=== PATIENT | female | born 1995 | race Caucasian/White ===

== ENCOUNTER 2016-08-29 00:02 | Emergency (ER) | payer OTHER ==
[2016-08-29 01:24] VITALS: BP 119/67; PULSE 82; TEMP 98.9; BMI 28.3
[2016-08-29] MEDS ORDERED: IBUPROFEN 400 MG TABLET (FP) PO ONE ×2 (01:58→03:32)
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
[2016-08-29 03:33] LABS: URINE APPEARANCE CLEAR; URINE BILIRUBIN NEGATIVE (NEGATIVE); URINE BLOOD NEGATIVE (NEGATIVE); URINE COLOR YELLOW; URINE GLUCOSE (UA) NEGATIVE (NEGATIVE); URINE KETONE TRACE (NEGATIVE); URINE LEUK ESTERASE NEGATIVE (NEGATIVE); URINE NITRITE NEGATIVE (NEGATIVE); URINE PROTEIN NEGATIVE (NEGATIVE); URINE UROBILINOGEN NEGATIVE E.U./dl (0.2-1.0)
[2016-08-29] MEDS ORDERED: AMOX TR/POT CLAV 875MG/125MG TABLETS (FP) PO ONE (03:33)
[2016-08-29] MEDS ORDERED: AMOX TR/POT CLAV 875MG/125MG TABLETS (FP) ONE (03:38)
[2016-08-29] MEDS ORDERED: BACITRACIN 0.9 GM PACKET ONE (03:41)
== END 2016-08-29 04:09 | disposition short-term general hospital (02) ==
LOC: JER 00:02
DX: S61.051A Open bite of right thumb without damage to nail, initial encounter (principal); S63.641A Sprain of metacarpophalangeal joint of right thumb, initial encounter; Y04.1XXA Assault by human bite, initial encounter; Y93.89 Activity, other specified; Y92.9 Unspecified place or not applicable
CPT/HCPCS: 73130-TC-RT; 81003; 84703; 99283-25

== ENCOUNTER 2017-01-25 20:26 | Inpatient (IN) | payer OTHER ==
--- NOTE | 2017-01-25 21:21 | PDOC ---
History of Present Illness - General History Source: Patient Exam Limitations: No Limitations - History of Present Illness Initial Comments: 01/25/17 22:18 The patient is a 21 year old female , with significant past medical history of asthma, who presents today complaining of 2 weeks of RUQ pain, nausea, and vomiting. The patient notes that she visited her PCP, 5 days ago, secondary to vomiting and was told she was after a urine test. She notes that she was vomiting some bright red blood and was told that she has a probable esophageal tear from vomiting for 2 weeks. She notes that her LMP was 12/14/16. Her last meal today was wolof food for dinner, but she vomited afterwards. She notes that the RUQ pain has subsided since arriving to the emergency room. The patient does not have an OBGYN yet and is unsure how many weeks she is. Denies fever, chills, diarrhea. Denies flank pain. Denies chest pain, SOB. Allergies: none reported PCP: Dr. Messi Lozada <Lucia Adkins - Last Filed: 01/26/17 02:54> <Mona Chen - Last Filed: 01/26/17 05:59> - General Chief Complaint: Nausea/Vomiting Stated Complaint: PAIN ACUTE () Time Seen by Provider: 01/25/17 21:04 Past History <Lucia Adkins - Last Filed: 01/26/17 02:54> - Past Medical History Asthma: Yes Other medical history: denies - Immunization History Immunization Up to Date: Yes - Psycho/Social/Smoking Cessation Hx Anxiety: No Suicidal Ideation: No Smoking History: Never smoked Have you smoked in the past 12 months: No Hx Alcohol Use: No Drug/Substance Use Hx: No Substance Use Type: None <Mona Chen - Last Filed: 01/26/17 05:59> - Past Medical History Allergies/Adverse Reactions: Allergies Allergy/AdvReac Type Severity Reaction Status Date / Time No Known Allergies Allergy Verified 01/25/17 20:31 Home Medications: Ambulatory Orders NK [No Known Home Medication] 01/26/17 Review of Systems - Review of Systems Able to Perform ROS?: Yes Comments:: 01/25/17 22:20 GENERAL/CONSTITUTIONAL: No fever or chills. No weakness. HEAD, EYES, EARS, NOSE AND THROAT: No change in vision. No ear pain or discharge. No sore throat. CARDIOVASCULAR: No chest pain or shortness of breath. RESPIRATORY: No cough, wheezing, or hemoptysis. GASTROINTESTINAL: +nausea, +vomiting, +RUQ pain. No diarrhea or constipation. GENITOURINARY: No dysuria, frequency, or change in urination. MUSCULOSKELETAL: No joint or muscle swelling or pain. No neck or back pain. SKIN: No rash NEUROLOGIC: No headache, vertigo, loss of consciousness, or change in strength/ sensation. ENDOCRINE: No increased thirst. No abnormal weight change. HEMATOLOGIC/LYMPHATIC: No anemia, easy bleeding, or history of blood clots. ALLERGIC/IMMUNOLOGIC: No hives or skin allergy. <Lucia Adkins - Last Filed: 01/26/17 02:54> *Physical Exam - Vital Signs Last Vital Signs Temp Pulse Resp BP Pulse Ox 97 H 18 116/62 99 01/25/17 20:29 01/25/17 20:29 01/25/17 20:29 01/25/17 20:29 - Physical Exam Comments: 01/25/17 22:21 GENERAL: Awake, alert, and fully oriented, in no acute distress HEAD: No signs of trauma EYES: PERRLA, EOMI, sclera anicteric, conjunctiva clear ENT: Auricles normal inspection, hearing grossly normal, nares patent, oropharynx clear without exudates. Moist mucosa NECK: Normal ROM, supple, no lymphadenopathy, JVD, or masses LUNGS: Breath sounds equal, clear to auscultation bilaterally. No wheezes, and no crackles HEART: Regular rate and rhythm, normal S1 and S2, no murmurs, rubs or gallops ABDOMEN: RLQ and LLQ tenderness to palpation. Soft, hyperactive bowel sounds. No guarding, no rebound. No masses. No flank pain EXTREMITIES: Normal range of motion, no edema. No clubbing or cyanosis. No cords, erythema, or tenderness NEUROLOGICAL: Grossly normal. Cranial nerves II through XII grossly intact. Normal speech, normal gait SKIN: Warm, Dry, normal turgor, no rashes or lesions noted. <Lucia Adkins - Last Filed: 01/26/17 02:54> - Vital Signs Last Vital Signs Temp Pulse Resp BP Pulse Ox 97 H 18 116/62 99 09/01/17 20:29 01/25/17 20:29 01/25/17 20:29 01/25/17 20:29 <Mona Chen - Last Filed: 01/26/17 05:59> ED Treatment Course - LABORATORY CBC & Chemistry Diagram: 01/25/17 22:10 01/25/17 22:10 - RADIOLOGY Radiograph Interpretation: 01/26/17 01:27 EXAM: US ABDOMEN LIMITED, right upper quadrant and limited abdominal duplex HISTORY:Right quadrant pain COMPARISON: None. FINDINGS:Right upper quadrant ultrasound:The liver is mildly fatty, without mass or biliary duct dilation. There is gallbladder sludge without secondary findings for cholecystitis.. The CBD is borderline dilated and measures 7 millimeters in diameter. Right kidney measures 10.0 centimeters in length and is unremarkable. The visualized aorta and IVC are normal. Pancreas is partially obscured, but appears normal. Abdominal duplex: Main portal vein demonstrates normal hepatopedal flow. IMPRESSION: Gallbladder sludge without secondary findings for cholecystitis. Mildly dilated CBD is nonspecific and may be followed up with MRCP as clinically warranted. Mild fatty liver. EXAM: US ABDOMEN LIMITED, RIGHT LOWER QUADRANT HISTORY:Rule out appendicitis COMPARISON: None. FINDINGS:Appendix not identified. No free fluid. IMPRESSION: Non-identification of the appendix and therefore appendicitis cannot be excluded. EXAM: Ultrasound , first trimester and pelvic duplex HISTORY:Rule out ectopic COMPARISON: None. FINDINGS:Ultrasound :Uterus is anteverted and measures 7.5centimeters in length. There is a single live IUP with estimated gestational age of 6weeks and 4days. There is a normal heart rate of one are 16beats per minute. There is no subchorionic bleed. The right ovary measures 3.3centimeters in length and contains a 2.9 cm cyst but demonstrates normal flow. The left ovary measures 1.8centimeters in length and appears normal. There is no significant free fluid. Pelvic duplex: There is normal arterial and venous flow in both ovaries. IMPRESSION: Live IUP with estimated age 6 weeks one day. 2.9 cm right ovarian cyst, possibly the corpus luteum, without free fluid. - Medications Given in the ED: ED Medications Discontinued Medications Generic Name Dose Route Start Last Admin Trade Name Freq PRN Reason Stop Dose Admin Sodium Chloride 1,000 ml 01/25/17 22:09 01/25/17 22:12 Normal Saline - IV 01/25/17 22:10 1,000 ml ONCE ONE Administration <Lucia Adkins - Last Filed: 01/26/17 02:54> - LABORATORY CBC & Chemistry Diagram: 01/25/17 22:10 01/25/17 22:10 <Mona Chen - Last Filed: 01/26/17 05:59> Medical Decision Making - Medical Decision Making 01/26/17 02:54 Dr. Guthrie was paged and spoke with Dr. Chen at 2:30am. <Lucia Adkins - Last Filed: 01/26/17 02:54> - Medical Decision Making 01/26/17 01:32 Pt comes with abdominal pain. RUQ and RLQ. Sono shows fatty liver and GB sludge. Pt is 100lbs overweight. Pt's sono of pelvis doesn't identify her appendix. Pt's sono of pregnency shows a 6 week IUP. Pt continues to vomit and she has 3+ ketones in her urine. I will hydrate with D5NS and give reglan for the vomiting 01/26/17 05:56 Pt will be admitted to observation for Surgery evaluation in the AM to r/o appendicitis. She has elevated WBC count, and she continues to have right sided abd pain, though it has improved a bit. 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 <Mona Chen - Last Filed: 01/26/17 05:59> *DC/Admit/Observation/Transfer - Attestations Scribe Attestion: 01/25/17 22:21 Documentation prepared by SOY Clancy, acting as medical physicist for Mona Chen MD. <Lucia Adkins - Last Filed: 01/26/17 02:54> - Discharge Dispostion Admit: Yes <Mona Chen - Last Filed: 01/26/17 05:59> Diagnosis at time of Disposition: Abdominal pain during , Dehydration during , Sludge in gallbladder - Referrals
[2017-01-25] MEDS ORDERED: SODIUM CHLORIDE 0.9% 500 ML INFUS.BAG IV ONE (22:09)
[2017-01-25 22:17] LABS: BASOPHIL 0.3 % (0-2.0); EOSINOPHIL 0.1 % (0-4.5); MCH 29.5 pg (25.7-33.7); MCHC 34.2 g/dl (32.0-36.0); MEAN CELL VOLUME 86.3 fl (80-96); MEAN PLT VOLUME 8.3 fl (7.5-11.1); NEUTROPHILS 87.6 % (42.8-82.8); PLATELET COUNT 300 K/MM3 (134-434); RDW 13.9 % (11.6-15.6); WHITE BLOOD COUNT 15.1 K/mm3 (4.0-10.0)
[2017-01-25 22:30] LABS: INR 1.35 (0.82-1.09); PROTHROMBIN TIME (PATIENT) 14.9 SEC (9.98-11.88)
[2017-01-26 00:35] LABS: ALBUMIN 3.9 g/dl (3.4-5.0); ALK PHOS 119 U/L (45-117); ANION GAP 14 (8-16); CALCIUM 9.1 mg/dL (8.5-10.1); CO2 20 mmol/L (21-32); CREATININE 0.7 mg/dL (0.55-1.02); GLUCOSE,RANDOM 72 mg/dL (74-106); SGPT/ALT 43 U/L (12-78); TOT PROT 7.6 g/dl (6.4-8.2)
[2017-01-26 00:38] LABS: SGOT/AST 37 U/L (15-37)
[2017-01-26 00:57] LABS: URINE APPEARANCE CLEAR; URINE BILIRUBIN 1+ (NEGATIVE); URINE BLOOD 1+ (NEGATIVE); URINE COLOR YELLOW; URINE GLUCOSE (UA) NEGATIVE (NEGATIVE); URINE KETONE 3+ (NEGATIVE); URINE LEUK ESTERASE NEGATIVE (NEGATIVE); URINE NITRITE NEGATIVE (NEGATIVE); URINE PROTEIN NEGATIVE (NEGATIVE)
[2017-01-26 01:20] LABS: URINE BACTERIA RARE /hpf (NONE SEEN); URINE MUCUS FEW; URINE RBC 2 /hpf (0-3); URINE WBC 2 /hpf (3-5)
[2017-01-26] MEDS ORDERED: METOCLOPRAMIDE HCL INJECTION 10 MG/2 ML VIAL IVPB ONE (01:34)
[2017-01-26] MEDS ORDERED: METOCLOPRAMIDE HCL INJECTION 10 MG/2 ML VIAL ONE (01:43)
[2017-01-26] MEDS ORDERED: DEXTROSE 5%-NORMAL SALINE 1,000 ML IV SCH (01:45)
[2017-01-26] MEDS ORDERED: ONDANSETRON 4 MG/2 ML VIAL IVPUSH ONE (03:36)
[2017-01-26 04:22] VITALS: BMI 43.7
[2017-01-26] MEDS: DEXTROSE 5%-0.45% SALINE 1,000 ML IV SCH ×2 (05:16→21:16)
[2017-01-26 08:23] LABS: BASOPHIL 0.4 % (0-2.0); EOSINOPHIL 0.3 % (0-4.5); MCH 29.1 pg (25.7-33.7); MCHC 33.3 g/dl (32.0-36.0); MEAN CELL VOLUME 87.6 fl (80-96); MEAN PLT VOLUME 8.2 fl (7.5-11.1); NEUTROPHILS 77.2 % (42.8-82.8); PLATELET COUNT 251 K/MM3 (134-434); RDW 13.7 % (11.6-15.6); WHITE BLOOD COUNT 12.5 K/mm3 (4.0-10.0)
[2017-01-26 08:52] LABS: ANION GAP 7 (8-16); BILIRUBIN,TOTAL 0.9 mg/dL (0.2-1.0); CO2 27 mmol/L (21-32); CREATININE 0.7 mg/dL (0.55-1.02); GLUCOSE,RANDOM 92 mg/dL (74-106); SGOT/AST 15 U/L (15-37); SGPT/ALT 33 U/L (12-78)
[2017-01-26 08:53] LABS: ALK PHOS 99 U/L (45-117); TOT PROT 6.1 g/dl (6.4-8.2)
--- NOTE | 2017-01-26 09:01 | CON.OBG ---
Consult Consult Specialty:: OB / HVAC SERVICE TECH Reason for Consultation:: - History of Present Illness Chief Complaint: Right upper Quadrant pain / Vomiting History of Present Illness: 21 yo , LMP 12/14/2016, admitted to hospital due to RUQ pain and vomiting, consulted due to incidental finding of . Patient has h/o Asthma. She had a sonogram done showing evidence of a 6 weeks gestation. Patient has appointment to start care. - History Source History Provided By: Patient Limitations to Obtaining History: No Limitations - Past Medical History ...LMP: 12/14/16 ...: Yes - Past Surgical History Past Surgical History: Yes: None - Alcohol/Substance Use Hx Alcohol Use: No History of Substance Use: reports: None - Smoking History Smoking history: Never smoked Have you smoked in the past 12 months: No Aproximately how many cigarettes per day: 0 - Social History Usual Living Arrangement: With Parent History of Recent Travel: No Home Medications - Allergies Allergies/Adverse Reactions: Allergies Allergy/AdvReac Type Severity Reaction Status Date / Time No Known Allergies Allergy Verified 01/25/17 20:31 - Home Medications Home Medications: Ambulatory Orders NK [No Known Home Medication] 01/26/17 Family Disease History - Family Disease History Family History: Unremarkable Review of Systems - Review of Systems Constitutional: reports: Loss of Appetite Eyes: reports: No Symptoms HENT: reports: No Symptoms Neck: reports: No Symptoms Cardiovascular: reports: No Symptoms Respiratory: reports: No Symptoms Gastrointestinal: reports: Nausea, Vomiting Genitourinary: denies: Vaginal Bleeding Breasts: reports: No Symptoms Reported Integumentary: reports: No Symptoms Neurological: reports: No Symptoms Hematology/Lymphatic: reports: No Symptoms Psychiatric: reports: No Symptoms Pain Intensity: 3 Physical Exam-HVAC SERVICE TECH Vital Signs: Vital Signs Temperature 98.4 F 01/26/17 08:14 Pulse Rate 68 01/26/17 08:14 Respiratory Rate 18 01/26/17 08:14 Blood Pressure 108/56 01/26/17 08:14 O2 Sat by Pulse Oximetry (%) 99 01/26/17 04:25 Constitutional: Yes: Well Nourished Eyes: Yes: Conjunctiva Clear HENT: Yes: Atraumatic Neck: Yes: Supple Cardiovascular: Yes: Regular Rate and Rhythm Respiratory: Yes: Regular, CTA Bilaterally Gastrointestinal: Yes: Normal Bowel Sounds External Genitalia: Yes: Normal Vaginal Exam: No: Bleeding Cervix: Yes: Normal Uterus: Yes: Normal Neurological: Yes: Alert Labs: CBC, BMP 01/26/17 06:05 01/26/17 06:05 Assessment/Plan IUP @ 6 weeks RUQ pain Nausea / Vomiting R/O Hyperemesis gravidarum R/O Cholecystitis vitamins Reglan for vomiting care as outpatient
--- NOTE | 2017-01-26 09:39 | CONSULT ---
Consult Consult Specialty:: Surgery Reason for Consultation:: Abdominal pain - History of Present Illness Chief Complaint: Abdominal pain History of Present Illness: 21 female presents to the ER with abdominal pain First episode Pain in RUQ primarily but also in RLQ No nausea No fevers + test noted in ER States pain is improved since admission - History Source History Provided By: Patient Limitations to Obtaining History: No Limitations - Past Medical History ...LMP: 12/14/16 ...: Yes - Past Surgical History Past Surgical History: Yes: None - Alcohol/Substance Use Hx Alcohol Use: No History of Substance Use: reports: None - Smoking History Smoking history: Never smoked Have you smoked in the past 12 months: No Aproximately how many cigarettes per day: 0 - Social History Usual Living Arrangement: With Parent History of Recent Travel: No Home Medications - Allergies Allergies/Adverse Reactions: Allergies Allergy/AdvReac Type Severity Reaction Status Date / Time No Known Allergies Allergy Verified 01/25/17 20:31 - Home Medications Home Medications: Ambulatory Orders NK [No Known Home Medication] 01/26/17 Family Disease History - Family Disease History Family History: Unremarkable Review of Systems - Review of Systems Constitutional: denies: Chills, Fever HENT: reports: No Symptoms Cardiovascular: denies: Chest Pain Respiratory: denies: Cough Gastrointestinal: reports: Abdominal Pain. denies: Diarrhea, Nausea, Vomiting Genitourinary: reports: No Symptoms Neurological: denies: Change in LOC Pain Intensity: 4 Physical Exam Vital Signs: Vital Signs Temperature 98.4 F 01/26/17 08:14 Pulse Rate 68 01/26/17 08:14 Respiratory Rate 18 01/26/17 08:14 Blood Pressure 108/56 01/26/17 08:14 O2 Sat by Pulse Oximetry (%) 99 01/26/17 04:25 Constitutional: Yes: Calm HENT: Yes: WNL Neck: Yes: Supple Cardiovascular: Yes: Regular Rate and Rhythm Respiratory: Yes: CTA Bilaterally Gastrointestinal: Yes: Soft, Abdomen, Obese, Tenderness (Minimal RUQ tenderness , no Gonzalez's sign). No: Tenderness, Rebound Extremities: Yes: WNL Neurological: Yes: Alert, Oriented Labs: CBC, BMP 01/26/17 06:05 01/26/17 06:05 Imaging - Results Ultrasound: Image Reviewed Assessment/Plan 21 female with RUQ pain Now improved Gallbladder sludge see on U/S No emergent surgical intervention needed at this time Discussed plan in detail If decides to continue with the , would wait until after she delivers to perform a laparoscopic cholecystectomy for biliary colic- otherwise high risk If decides to not continue with the , would plan cholecystectomy after D+C
--- NOTE | 2017-01-26 15:49 | HP ---
Admitting History and Physical - Admission History of Present Illness: Pt is a 21 y/o morbidly female who is 5 weeks and has been having intermittent abdominal pain for the past 5 days. Pt also c/o nausea w/ vomiting. Pt denies any fever/chills. The pain began initially after having dinner. In the ER pt found to have elevated WBC of 15,000 and US done showed intrauterine of 6 weeks, fatty infiltration of liver w/ GB sludge. - Past Medical History ...LMP: 12/14/16 ...: Yes - Past Surgical History Past Surgical History: Yes: None - Smoking History Smoking history: Never smoked Have you smoked in the past 12 months: No Aproximately how many cigarettes per day: 0 - Alcohol/Substance Use Hx Alcohol Use: No History of Substance Use: reports: None - Social History History of Recent Travel: No Home Medications - Allergies Allergies/Adverse Reactions: Allergies Allergy/AdvReac Type Severity Reaction Status Date / Time No Known Allergies Allergy Verified 01/25/17 20:31 - Home Medications Home Medications: Ambulatory Orders NK [No Known Home Medication] 01/26/17 Family Disease History - Family Disease History Family History: Unremarkable Review of Systems - Review of Systems Constitutional: reports: Loss of Appetite Eyes: reports: No Symptoms HENT: reports: No Symptoms Neck: reports: No Symptoms Cardiovascular: reports: No Symptoms Respiratory: reports: No Symptoms Gastrointestinal: reports: Abdominal Pain, Nausea, Vomiting Physical Examination Vital Signs: Vital Signs Temperature 98.8 F 01/26/17 13:49 Pulse Rate 66 01/26/17 15:47 Respiratory Rate 18 01/26/17 15:47 Blood Pressure 98/49 01/26/17 15:47 O2 Sat by Pulse Oximetry (%) 100 01/26/17 12:01 Constitutional: Yes: Well Nourished, No Distress Eyes: Yes: WNL HENT: Yes: WNL Neck: Yes: WNL, Supple Cardiovascular: Yes: WNL, Regular Rate and Rhythm Respiratory: Yes: WNL, Regular, CTA Bilaterally Gastrointestinal: Yes: Normal Bowel Sounds, Other ((+) minimal RUQ abdominal pain on palpation (-) guarding/rebound) Breast(s): Yes: WNL Musculoskeletal: Yes: WNL Extremities: Yes: WNL Edema: No Neurological: Yes: WNL, Alert, Oriented ...Motor Strength: WNL Labs: CBC, BMP 01/26/17 06:05 01/26/17 06:05 Problem List - Problems (1) Abdominal pain during Assessment/Plan: NPO IVF Surgical consult Leukocytosis could be secondary to dehydration Monitor wbc Code(s): O26.899 - OTH RELATED CONDITIONS, UNSPECIFIED TRIMESTER R10.9 - UNSPECIFIED ABDOMINAL PAIN
[2017-01-26] MEDS: ACETAMINOPHEN 325 MG TABLET (FP) PO PRN ×2 (17:48→23:36)
[2017-01-26] MEDS ORDERED: SODIUM CHLORIDE 500 ML IV ONE (21:45)
[2017-01-26] MEDS ORDERED: SODIUM CHLORIDE 0.45% 1,000 ML IV SCH (23:00)
[2017-01-27] MEDS: SODIUM CHLORIDE 0.45% 1,000 ML IV SCH ×2 (01:18→08:54)
[2017-01-27] MEDS: ACETAMINOPHEN 325 MG TABLET (FP) PO PRN ×3 (03:04→19:55)
[2017-01-27] MEDS ORDERED: SODIUM CHLORIDE 500 ML IV ONE (07:00)
[2017-01-27 07:10] LABS: BASOPHIL 0.6 % (0-2.0); EOSINOPHIL 0.8 % (0-4.5); MCH 29.3 pg (25.7-33.7); MCHC 33.3 g/dl (32.0-36.0); MEAN CELL VOLUME 87.9 fl (80-96); NEUTROPHILS 74.9 % (42.8-82.8); PLATELET COUNT 256 K/MM3 (134-434); RDW 13.8 % (11.6-15.6); WHITE BLOOD COUNT 9.9 K/mm3 (4.0-10.0)
[2017-01-27 07:40] LABS: TROPONIN I < 0.02 ng/ml (0.00-0.05)
[2017-01-27 07:41] LABS: ALBUMIN 3.2 g/dl (3.4-5.0); ALK PHOS 110 U/L (45-117); ANION GAP 8 (8-16); BILIRUBIN,TOTAL 2.6 mg/dL (0.2-1.0); CALCIUM 8.4 mg/dL (8.5-10.1); CO2 26 mmol/L (21-32); CREATININE 0.6 mg/dL (0.55-1.02); GLUCOSE,RANDOM 80 mg/dL (74-106); SGOT/AST 34 U/L (15-37); SGPT/ALT 49 U/L (12-78); TOT PROT 6.2 g/dl (6.4-8.2)
[2017-01-27 08:09] LABS: CPK 43 IU/L (26-192)
--- NOTE | 2017-01-27 09:26 | PN ---
Progress Note (short form) - Note Progress Note: + Nausea Difficulty tolerating clears- placed NPO by RN Still complaining of RUQ pain Vital Signs Period Temp Pulse Resp BP Sys/Flowers Pulse Ox Last 24 Hr 98.2 F-98.8 F 58-78 16-18 79-120/39-73 100-100 Abd soft, NT, no Gonzalez's sign CBC,CMP WBC 9.9 K/mm3 (4.0-10.0) 01/27/17 06:15 Corrected WBC (auto) Cancelled 01/26/17 06:05 RBC 4.36 M/mm3 (3.60-5.2) 01/27/17 06:15 Hgb 12.8 GM/dL (10.7-15.3) 01/27/17 06:15 Hct 38.4 % (32.4-45.2) 01/27/17 06:15 MCV 87.9 fl (80-96) 01/27/17 06:15 MCH 29.3 pg (25.7-33.7) 01/27/17 06:15 MCHC 33.3 g/dl (32.0-36.0) 01/27/17 06:15 RDW 13.8 % (11.6-15.6) 01/27/17 06:15 Plt Count 256 K/MM3 (134-434) 01/27/17 06:15 MPV 8.0 fl (7.5-11.1) 01/27/17 06:15 Neutrophils % 74.9 % (42.8-82.8) 01/27/17 06:15 Lymphocytes % 18.1 % (8-40) 01/27/17 06:15 Monocytes % 5.6 % (3.8-10.2) 01/27/17 06:15 Eosinophils % 0.8 % (0-4.5) D 01/27/17 06:15 Basophils % 0.6 % (0-2.0) 01/27/17 06:15 Differential Comment Cancelled 01/26/17 06:05 Platelet Estimate Cancelled 01/26/17 06:05 Platelet Comment Cancelled 01/26/17 06:05 Platelet Comment Cancelled 01/26/17 06:05 RBC Morphology Cancelled 01/26/17 06:05 Sodium 139 mmol/L (136-145) 01/27/17 06:15 Potassium 3.7 mmol/L (3.5-5.1) 01/27/17 06:15 Chloride 105 mmol/L (98-107) 01/27/17 06:15 Carbon Dioxide 26 mmol/L (21-32) 01/27/17 06:15 Anion Gap 8 (8-16) 01/27/17 06:15 BUN 3 mg/dL (7-18) L D 01/27/17 06:15 Creatinine 0.6 mg/dL (0.55-1.02) 01/27/17 06:15 Creat Clearance w eGFR > 60 (>60) 01/27/17 06:15 Random Glucose 80 mg/dL (74-106) 01/27/17 06:15 Lactic Acid 0.8 mmol/L (0.4-2.0) 01/27/17 06:15 Calcium 8.4 mg/dL (8.5-10.1) L 01/27/17 06:15 Total Bilirubin 2.6 mg/dL (0.2-1.0) H D 01/27/17 06:15 AST 34 U/L (15-37) D 01/27/17 06:15 ALT 49 U/L (12-78) D 01/27/17 06:15 Alkaline Phosphatase 110 U/L (45-117) 01/27/17 06:15 Creatine Kinase 43 IU/L (26-192) 01/27/17 06:15 Troponin I < 0.02 ng/ml (0.00-0.05) 01/27/17 06:15 Total Protein 6.2 g/dl (6.4-8.2) L 01/27/17 06:15 Albumin 3.2 g/dl (3.4-5.0) L 01/27/17 06:15 Beta HCG, Quant 96006.5 mIU/ml 01/25/17 22:10 Bilirubin elevated MRCP NPO May need ERCP if has CBD stones
--- NOTE | 2017-01-27 11:01 | CONSULT ---
Consult Consult Specialty:: INFECTIOUS DISEASE Reason for Consultation:: RUQ pain/Leukocytosis - History of Present Illness Chief Complaint: RUQ pain/vomitine x 2 wks History of Present Illness: This is a 21 y.o. female with no significant past medical history presenting with complaints of vomiting and persistent RUQ pain for the past 2 weeks. Has had blood-tinged vomitus but recently clear then bilious. She recently went to her PMD and found out she was . Her LMP was on 12/14/16. She denies fever /chills or any other specific complaints. Initial wbc was 15K. Currently she is in pain but not in acute distress. 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 ) Cardio/Vascular: No: AFIB, Aneurysm, Aortic Insufficiency, Aortic Stenosis, CAD , CHF, Deep Vein Thrombosis, HTN, Hyperlipdemia, [place], Mitral Insufficiency, Mitral Stenosis, Murmur, Pulmonary Hypertension, Other Gastrointestinal: No: Ascites, Cancer, Constipation, Crohn's Disease, Diverticulitis, Diverticulosis, Esophageal Varices, Gastritis, GERD, GI Bleed, Hemorrhoids, Hiatal Hernia, Inflamatory Bowel Disease, Irritable Bowel Disease, Pancreatitis, Peptic Ulcer Disease, Ulcerative Colitis, Other Hepatobiliary: No: Cirrhosis, Cholelithiasis, Cholecystitis, Choledocholithiasis , Hepatitis A, Hepatitis B, Hepatitis C, Other Renal/: No: Renal Failure, Renal Inusuff, BPH, Cancer, Hematuria, Hemodialysis , Neurogenic Bladder, Renal Calculi, UTI, Other Reproductive: No: Ectopic , Endometriosis, Fibroids, PID, Polycystic Ovary Syndrome, Postmenopausal, Other ...LMP: 12/14/16 ...: Yes Heme/Onc: No: Anemia, B12 Deficiency, Bleeding Disorder, Cancer, Current Chemotherapy, Current Radiation Therapy, Hemochromatosis, Hypercoaguable State, Myeloproliferative Synd, Sickle Cell Disease, Sickle Cell Trait, Thrombocytopenia, Other Infectious Disease: No: AIDS, C-Diff, Herpes Zoster, HIV, MRSA, STD's, Tuberculosis, VREF, Other Psych: No: Addictions, Anxiety, Bipolar, Depression, Panic, Psychosis, Schizophrenia, Other Musculoskeletal: No: Bursitis, Chronic low back pain, Hemiparesis, Hemiplegia, Osteoarthritis, Paraplegia, Other Rheumatology: No: Fibromyalgia, Gout, Lupus, Rheumatoid Arthritis, Sarcoidosis, Vasculitis, Other ENT: No: Allergic Rhinitis, Sinusitis, Other Endocrine: No: [place]'s Disease, [place]'s Disease, Diabetes Insipidus, Diabetes Mellitus, Hyperparathyroidism, Hyperthyroidism, Hypothyroidism, Osteopenia, SIADH, Other Dermatology: No: Basal Cell, Cellulitis, Eczema, Melanoma, Psoriasis, Squamous Cell, Other - Past Surgical History Past Surgical History: Yes: None - Alcohol/Substance Use Hx Alcohol Use: No History of Substance Use: reports: None - Smoking History Smoking history: Never smoked Have you smoked in the past 12 months: No Aproximately how many cigarettes per day: 0 - Social History Usual Living Arrangement: With Parent History of Recent Travel: No Home Medications - Allergies Allergies/Adverse Reactions: Allergies Allergy/AdvReac Type Severity Reaction Status Date / Time No Known Allergies Allergy Verified 01/25/17 20:31 - Home Medications Home Medications: Ambulatory Orders NK [No Known Home Medication] 01/26/17 Family Disease History - Family Disease History Family History: Denies Review of Systems - Review of Systems Constitutional: denies: No Symptoms, Chills, Diaphoresis, Fever, Lethargy, Loss of Appetite, Malaise, Night Sweats, Unintentional Wgt. Loss, Weakness, Other Eyes: denies: No Symptoms, Blind Spots, Blurred Vision, Double Vision, Eye Pain , Floaters, Photophobia, Recent Change in Vision, Other HENT: denies: No Symptoms, Difficult Swallowing, Ear Discharge, Ear Pain, Epistaxis, Gingival Bleeding, Hearing Loss, Mouth Swelling, Nasal Congestion, Ocular Prosthesis, Throat Pain, Toothache, Ringing in Ears, Other Neck: denies: No Symptoms, Decreased ROM, Lumps, Pain on Movement, Stiffness, Swollen Glands, Tenderness, Other Cardiovascular: denies: No Symptoms, Chest Pain, Edema, Palpitations, Shortness of Breath, Other Respiratory: denies: No Symptoms, Cough, Exercise Intolerance, Hemoptysis, Orthopnea, PND, Snoring, SOB, SOB on Exertion, Wheezing, Other Gastrointestinal: reports: Abdominal Pain, Vomiting, Other (RUQ, Vomiting more bilious recently) Genitourinary: reports: No Symptoms Musculoskeletal: reports: No Symptoms Integumentary: reports: No Symptoms Neurological: reports: No Symptoms Endocrine: reports: No Symptoms Hematology/Lymphatic: reports: No Symptoms Psychiatric: reports: No Symptoms Physical Exam Vital Signs: Vital Signs Temperature 98.2 F 01/27/17 07:30 Pulse Rate 58 L 01/27/17 07:30 Respiratory Rate 16 01/27/17 08:34 Blood Pressure 120/73 01/27/17 08:34 O2 Sat by Pulse Oximetry (%) 100 01/27/17 04:00 Constitutional: Yes: No Distress, Calm Eyes: Yes: WNL HENT: Yes: WNL Neck: Yes: WNL Cardiovascular: Yes: WNL Respiratory: Yes: WNL Gastrointestinal: Yes: Normal Bowel Sounds, Soft, Tenderness (RUQ, mild LLQ) Renal/: Yes: WNL Musculoskeletal: Yes: WNL Extremities: Yes: WNL Integumentary: Yes: WNL Neurological: Yes: Alert, Oriented ...Motor Strength: WNL Psychiatric: Yes: Alert, Oriented Labs: CBC, BMP 01/27/17 06:15 01/27/17 06:15 Beta HCG Beta HCG, Quant 58720.5 mIU/ml 01/25/17 22:10 CBC,CMP WBC 9.9 K/mm3 (4.0-10.0) 01/27/17 06:15 Corrected WBC (auto) Cancelled 01/26/17 06:05 RBC 4.36 M/mm3 (3.60-5.2) 01/27/17 06:15 Hgb 12.8 GM/dL (10.7-15.3) 01/27/17 06:15 Hct 38.4 % (32.4-45.2) 01/27/17 06:15 MCV 87.9 fl (80-96) 01/27/17 06:15 MCH 29.3 pg (25.7-33.7) 01/27/17 06:15 MCHC 33.3 g/dl (32.0-36.0) 01/27/17 06:15 RDW 13.8 % (11.6-15.6) 01/27/17 06:15 Plt Count 256 K/MM3 (134-434) 01/27/17 06:15 MPV 8.0 fl (7.5-11.1) 01/27/17 06:15 Neutrophils % 74.9 % (42.8-82.8) 01/27/17 06:15 Lymphocytes % 18.1 % (8-40) 01/27/17 06:15 Monocytes % 5.6 % (3.8-10.2) 01/27/17 06:15 Eosinophils % 0.8 % (0-4.5) D 01/27/17 06:15 Basophils % 0.6 % (0-2.0) 01/27/17 06:15 Differential Comment Cancelled 01/26/17 06:05 Platelet Estimate Cancelled 01/26/17 06:05 Platelet Comment Cancelled 01/26/17 06:05 Platelet Comment Cancelled 01/26/17 06:05 RBC Morphology Cancelled 01/26/17 06:05 Sodium 139 mmol/L (136-145) 01/27/17 06:15 Potassium 3.7 mmol/L (3.5-5.1) 01/27/17 06:15 Chloride 105 mmol/L (98-107) 01/27/17 06:15 Carbon Dioxide 26 mmol/L (21-32) 01/27/17 06:15 Anion Gap 8 (8-16) 01/27/17 06:15 BUN 3 mg/dL (7-18) L D 01/27/17 06:15 Creatinine 0.6 mg/dL (0.55-1.02) 01/27/17 06:15 Creat Clearance w eGFR > 60 (>60) 01/27/17 06:15 Random Glucose 80 mg/dL (74-106) 01/27/17 06:15 Lactic Acid 0.8 mmol/L (0.4-2.0) 01/27/17 06:15 Calcium 8.4 mg/dL (8.5-10.1) L 01/27/17 06:15 Total Bilirubin 2.6 mg/dL (0.2-1.0) H D 01/27/17 06:15 AST 34 U/L (15-37) D 01/27/17 06:15 ALT 49 U/L (12-78) D 01/27/17 06:15 Alkaline Phosphatase 110 U/L (45-117) 01/27/17 06:15 Creatine Kinase 43 IU/L (26-192) 01/27/17 06:15 Troponin I < 0.02 ng/ml (0.00-0.05) 01/27/17 06:15 Total Protein 6.2 g/dl (6.4-8.2) L 01/27/17 06:15 Albumin 3.2 g/dl (3.4-5.0) L 01/27/17 06:15 Beta HCG, Quant 52620.5 mIU/ml 01/25/17 22:10 Imaging - Results Ultrasound: Report Reviewed Problem List - Problems (1) Abdominal pain during Code(s): O26.899 - OTH RELATED CONDITIONS, UNSPECIFIED TRIMESTER R10.9 - UNSPECIFIED ABDOMINAL PAIN (2) Sludge in gallbladder Code(s): K82.8 - OTHER SPECIFIED DISEASES OF GALLBLADDER Assessment/Plan Leukocytosis R/O cholecystitis, mildly elevated bilirubin Slightly enlarged CBD - suggest Zosyn empirically for now - f/u with surgery - monitor closely
[2017-01-27] MEDS ORDERED: PIPERACILLIN/TAZOBACTAM 3.375 GM VIAL IVPB ONE ×2 (12:58→18:34)
[2017-01-27] MEDS ORDERED: DEXTROSE 5%-WATER - 50 ML IVPB ONE ×2 (12:58→18:35)
[2017-01-27] MEDS: PIPERACILLIN/TAZOB 3.375 GM 3.375 GM in DEXTROSE 5%-WATER - 50 ML IVPB SCH ×2 (13:23→18:44)
[2017-01-27 18:38] LABS: ALBUMIN 3.3 g/dl (3.4-5.0); ALK PHOS 127 U/L (45-117); ANION GAP 10 (8-16); BILIRUBIN,TOTAL 3.7 mg/dL (0.2-1.0); CALCIUM 8.8 mg/dL (8.5-10.1); CO2 23 mmol/L (21-32); CREATININE 0.6 mg/dL (0.55-1.02); GLUCOSE,RANDOM 74 mg/dL (74-106); SGOT/AST 48 U/L (15-37); SGPT/ALT 63 U/L (12-78); TOT PROT 6.4 g/dl (6.4-8.2)
[2017-01-27] MEDS: ONDANSETRON 4 MG/2 ML VIAL IVPB PRN (20:16)
--- NOTE | 2017-01-27 23:05 | PN ---
Progress Note, Physician History of Present Illness: Pt having some abdominal pain - Current Medication List Current Medications: Active Medications Acetaminophen (Tylenol -) 650 mg PO Q4H PRN PRN Reason: FEVER OR PAIN Last Admin: 01/27/17 19:55 Dose: 650 mg Sodium Chloride (1/2 Normal Saline) 1,000 mls @ 100 mls/hr IV ASDIR HARSH Last Admin: 01/27/17 08:54 Dose: 100 mls/hr Piperacillin Sod/Tazobactam (Sod 3.375 gm/ Dextrose) 50 mls @ 100 mls/hr IVPB Q8H-IV HARSH PRN Reason: Protocol Last Admin: 01/27/17 18:44 Dose: 100 mls/hr Ondansetron HCl (Zofran Injection) 4 mg IVPB Q8H PRN PRN Reason: NAUSEA AND/OR VOMITING Last Admin: 01/27/17 20:16 Dose: 4 mg - Objective Vital Signs: Vital Signs Temperature 99.6 F 01/27/17 17:02 Pulse Rate 63 01/27/17 17:02 Respiratory Rate 17 01/27/17 17:02 Blood Pressure 103/55 01/27/17 17:02 O2 Sat by Pulse Oximetry (%) 100 01/27/17 04:00 Constitutional: Yes: Well Nourished HENT: Yes: WNL Neck: Yes: WNL, Supple Cardiovascular: Yes: WNL, Regular Rate and Rhythm Respiratory: Yes: WNL, Regular, CTA Bilaterally Gastrointestinal: Yes: WNL, Normal Bowel Sounds, Soft, Abdomen, Obese Labs: CBC, BMP 01/27/17 06:15 01/27/17 17:50 INR, PTT INR 1.35 (0.82-1.09) H 01/25/17 22:10 Problem List - Problems (1) Abdominal pain during Assessment/Plan: PT to be NPO COnt IVF/antibxs Code(s): O26.899 - OTH RELATED CONDITIONS, UNSPECIFIED TRIMESTER R10.9 - UNSPECIFIED ABDOMINAL PAIN
[2017-01-28] MEDS ORDERED: DEXTROSE 5%-WATER - 50 ML IVPB ONE ×3 (02:09→17:01)
[2017-01-28] MEDS ORDERED: PIPERACILLIN/TAZOBACTAM 3.375 GM VIAL IVPB ONE ×4 (02:09→17:01)
[2017-01-28] MEDS: PIPERACILLIN/TAZOB 3.375 GM 3.375 GM in DEXTROSE 5%-WATER - 50 ML IVPB SCH ×3 (02:16→17:43)
[2017-01-28] MEDS: ACETAMINOPHEN 325 MG TABLET (FP) PO PRN (02:17)
[2017-01-28] MEDS: SODIUM CHLORIDE 0.45% 1,000 ML IV SCH ×2 (02:17→05:28)
[2017-01-28 07:20] LABS: BASOPHIL 0.5 % (0-2.0); EOSINOPHIL 0.2 % (0-4.5); MCH 28.9 pg (25.7-33.7); MCHC 32.9 g/dl (32.0-36.0); MEAN CELL VOLUME 87.9 fl (80-96); MEAN PLT VOLUME 8.4 fl (7.5-11.1); NEUTROPHILS 82.2 % (42.8-82.8); PLATELET COUNT 268 K/MM3 (134-434); RDW 13.9 % (11.6-15.6); WHITE BLOOD COUNT 12.1 K/mm3 (4.0-10.0)
[2017-01-28 07:43] LABS: ALBUMIN 3.2 g/dl (3.4-5.0); ANION GAP 14 (8-16); CALCIUM 8.8 mg/dL (8.5-10.1); CO2 20 mmol/L (21-32); CREATININE 0.7 mg/dL (0.55-1.02); GLUCOSE,RANDOM 54 mg/dL (74-106); SGOT/AST 46 U/L (15-37); SGPT/ALT 70 U/L (12-78); TOT PROT 6.4 g/dl (6.4-8.2)
[2017-01-28 07:44] LABS: ALK PHOS 144 U/L (45-117)
[2017-01-28] MEDS ORDERED: DEXTROSE 50%-WATER - 25 GM/50 ML VIAL IVPUSH ONE ×3 (09:00→09:15)
[2017-01-28] MEDS ORDERED: DEXTROSE 50%-WATER 50 ML DISP.SYRIN ONE (09:15)
[2017-01-28] MEDS ORDERED: DEXTROSE 5%-0.45% SALINE 1,000 ML IV SCH (10:15)
[2017-01-28] MEDS: ONDANSETRON 4 MG/2 ML VIAL IVPB PRN (11:19)
--- NOTE | 2017-01-28 11:41 | CON.GI ---
Consult Consult Specialty:: Gi Referred by:: Dr Guthrie - History of Present Illness History of Present Illness: 21 y/o F 6 weeks was doing well until 3 days ago when she developed 9/ 10 ruq pain after eating her dinner associated with nausea and vomiting. Her hospital stay was significant for continued ruq pain , nausea and vomiting after meals. Her LFTs has a downward trend. MRCP was done which revealed thickened gallbladder associated with normal CBD and intrahepatic ducts. Her urine is still highly colored and is very thirsty. 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 ) Cardio/Vascular: No: AFIB, Aneurysm, Aortic Insufficiency, Aortic Stenosis, CAD , CHF, Deep Vein Thrombosis, HTN, Hyperlipdemia, [place], Mitral Insufficiency, Mitral Stenosis, Murmur, Pulmonary Hypertension, Other Gastrointestinal: No: Ascites, Cancer, Constipation, Crohn's Disease, Diverticulitis, Diverticulosis, Esophageal Varices, Gastritis, GERD, GI Bleed, Hemorrhoids, Hiatal Hernia, Inflamatory Bowel Disease, Irritable Bowel Disease, Pancreatitis, Peptic Ulcer Disease, Ulcerative Colitis, Other Hepatobiliary: No: Cirrhosis, Cholelithiasis, Cholecystitis, Choledocholithiasis , Hepatitis A, Hepatitis B, Hepatitis C, Other Renal/: No: Renal Failure, Renal Inusuff, BPH, Cancer, Hematuria, Hemodialysis , Neurogenic Bladder, Renal Calculi, UTI, Other ...LMP: 12/14/16 ...: Yes Infectious Disease: No: AIDS, C-Diff, Herpes Zoster, HIV, MRSA, STD's, Tuberculosis, VREF, Other Psych: No: Addictions, Anxiety, Bipolar, Depression, Panic, Psychosis, Schizophrenia, Other Musculoskeletal: No: Bursitis, Chronic low back pain, Hemiparesis, Hemiplegia, Osteoarthritis, Paraplegia, Other Rheumatology: No: Fibromyalgia, Gout, Lupus, Rheumatoid Arthritis, Sarcoidosis, Vasculitis, Other ENT: No: Allergic Rhinitis, Sinusitis, Other Endocrine: No: [place]'s Disease, [place]'s Disease, Diabetes Insipidus, Diabetes Mellitus, Hyperparathyroidism, Hyperthyroidism, Hypothyroidism, Osteopenia, SIADH, Other Dermatology: No: Basal Cell, Cellulitis, Eczema, Melanoma, Psoriasis, Squamous Cell, Other - Past Surgical History Past Surgical History: Yes: None - Alcohol/Substance Use Hx Alcohol Use: No History of Substance Use: reports: None - Smoking History Smoking history: Never smoked Have you smoked in the past 12 months: No Aproximately how many cigarettes per day: 0 - Social History Usual Living Arrangement: With Parent History of Recent Travel: No Home Medications - Allergies Allergies/Adverse Reactions: Allergies Allergy/AdvReac Type Severity Reaction Status Date / Time No Known Allergies Allergy Verified 01/25/17 20:31 - Home Medications Home Medications: Ambulatory Orders NK [No Known Home Medication] 01/26/17 Review of Systems - Review of Systems Constitutional: denies: Fever Eyes: denies: Blurred Vision HENT: denies: Difficult Swallowing Neck: denies: Decreased ROM Cardiovascular: denies: Chest Pain Respiratory: denies: SOB Gastrointestinal: reports: Abdominal Pain (--ruq), Nausea, Vomiting Physical Exam-GI Vital Signs: Vital Signs Temperature 98.4 F 01/28/17 05:49 Pulse Rate 87 01/28/17 05:49 Respiratory Rate 18 01/28/17 05:49 Blood Pressure 104/50 01/28/17 05:49 O2 Sat by Pulse Oximetry (%) 100 01/28/17 04:00 Constitutional: Yes: Obese (--mild) Eyes: No: Sclera Icterus HENT: No: Hoarseness, Nasal Congestion Neck: Yes: Supple Cardiovascular: Yes: Regular Rate and Rhythm Respiratory: Yes: CTA Bilaterally ...Palpate: Yes: Soft, Tenderness (--ruq). No: Firm/Rigid, Guarding, Hepatomegaly, Splenomegaly Labs: CBC, BMP 01/28/17 06:00 01/28/17 06:00 INR, PTT INR 1.35 (0.82-1.09) H 01/25/17 22:10 Hepatic Panel Total Bilirubin 2.0 mg/dL (0.2-1.0) H D 01/28/17 06:00 AST 46 U/L (15-37) H 01/28/17 06:00 ALT 70 U/L (12-78) 01/28/17 06:00 Alkaline Phosphatase 144 U/L (45-117) H 01/28/17 06:00 Albumin 3.2 g/dl (3.4-5.0) L 01/28/17 06:00 Imaging - Results MRI: Report Reviewed Problem List - Problems (1) Acute cholecystitis Assessment/Plan: R> conitnue supportive care continue antibiotic as per ID increase IV fluids to correct dehydration Code(s): K81.0 - ACUTE CHOLECYSTITIS (2) Hyperemesis arising during Assessment/Plan: R> IV hydration IV Reglan scheduled Ranitisine 150mg bid Code(s): O21.0 - MILD HYPEREMESIS GRAVIDARUM
[2017-01-28] MEDS: METOCLOPRAMIDE HCL INJECTION 10 MG/2 ML VIAL IVPB SCH (12:56)
[2017-01-28] MEDS: DEXTROSE 5%-NORMAL SALINE 1,000 ML IV SCH (12:57)
--- NOTE | 2017-01-28 14:46 | PN ---
Progress Note, Physician History of Present Illness: patient feels much better no pain now had a bout of emesis this morning no other issues - Current Medication List Current Medications: Active Medications Acetaminophen (Tylenol -) 650 mg PO Q4H PRN PRN Reason: FEVER OR PAIN Last Admin: 01/28/17 02:17 Dose: 650 mg Piperacillin Sod/Tazobactam (Sod 3.375 gm/ Dextrose) 50 mls @ 100 mls/hr IVPB Q8H-IV HARSH PRN Reason: Protocol Last Admin: 01/28/17 09:25 Dose: 100 mls/hr Dextrose/Sodium Chloride (D5-Ns -) 1,000 mls @ 175 mls/hr IV ASDIR HARSH Stop: 01/30/17 17:28 Last Admin: 01/28/17 12:57 Dose: 175 mls/hr Metoclopramide HCl (Reglan Injection -) 10 mg IVPB Q8H-IV HARSH Last Admin: 01/28/17 12:56 Dose: 10 mg Ondansetron HCl (Zofran Injection) 4 mg IVPB Q8H PRN PRN Reason: NAUSEA AND/OR VOMITING Last Admin: 01/28/17 11:19 Dose: 4 mg Ranitidine HCl (Zantac -) 150 mg PO BID HARSH - Objective Vital Signs: Vital Signs Temperature 98.3 F 01/28/17 09:00 Pulse Rate 71 01/28/17 09:00 Respiratory Rate 18 01/28/17 12:00 Blood Pressure 115/55 01/28/17 09:00 O2 Sat by Pulse Oximetry (%) 100 01/28/17 12:00 Constitutional: Yes: No Distress, Calm, Obese Cardiovascular: Yes: Regular Rate and Rhythm Respiratory: Yes: Regular, CTA Bilaterally Gastrointestinal: Yes: Soft, Hypoactive Bowel Sounds Musculoskeletal: Yes: WNL Extremities: Yes: WNL Neurological: Yes: Alert, Oriented Psychiatric: Yes: Alert, Oriented Labs: CBC, BMP 01/28/17 06:00 01/28/17 06:00 INR, PTT INR 1.35 (0.82-1.09) H 01/25/17 22:10 Assessment/Plan Problem List - Problems (1) Abdominal pain during Code(s): O26.899 - OTH RELATED CONDITIONS, UNSPECIFIED TRIMESTER R10.9 - UNSPECIFIED ABDOMINAL PAIN (2) Sludge in gallbladder Code(s): K82.8 - OTHER SPECIFIED DISEASES OF GALLBLADDER patients wbc has increased again plan continue abx very close watch on wbc if wbc starts increasing then we will have to decide further plan
[2017-01-28] MEDS: RANITIDINE HCL 150 MG TABLET (FP) PO SCH (21:17)
--- NOTE | 2017-01-28 22:47 | PN ---
Progress Note, Physician History of Present Illness: Pt is NPO and denies any abdominal pain - Current Medication List Current Medications: Active Medications Acetaminophen (Tylenol -) 650 mg PO Q4H PRN PRN Reason: FEVER OR PAIN Last Admin: 01/28/17 02:17 Dose: 650 mg Piperacillin Sod/Tazobactam (Sod 3.375 gm/ Dextrose) 50 mls @ 100 mls/hr IVPB Q8H-IV HARSH PRN Reason: Protocol Last Admin: 01/28/17 17:43 Dose: 100 mls/hr Dextrose/Sodium Chloride (D5-Ns -) 1,000 mls @ 175 mls/hr IV ASDIR HARSH Stop: 01/30/17 17:28 Last Admin: 01/28/17 12:57 Dose: 175 mls/hr Metoclopramide HCl (Reglan Injection -) 10 mg IVPB Q8H-IV HARSH Last Admin: 01/28/17 12:56 Dose: 10 mg Ondansetron HCl (Zofran Injection) 4 mg IVPB Q8H PRN PRN Reason: NAUSEA AND/OR VOMITING Last Admin: 01/28/17 11:19 Dose: 4 mg Ranitidine HCl (Zantac -) 150 mg PO BID HARSH Last Admin: 01/28/17 21:17 Dose: 150 mg - Objective Vital Signs: Vital Signs Temperature 99.2 F 01/28/17 21:16 Pulse Rate 72 01/28/17 21:16 Respiratory Rate 20 01/28/17 21:16 Blood Pressure 98/59 01/28/17 21:16 O2 Sat by Pulse Oximetry (%) 100 01/28/17 12:00 Constitutional: Yes: Well Nourished HENT: Yes: WNL Neck: Yes: WNL, Supple Cardiovascular: Yes: WNL, Regular Rate and Rhythm Respiratory: Yes: WNL, Regular, CTA Bilaterally Gastrointestinal: Yes: WNL, Normal Bowel Sounds, Soft, Abdomen, Obese Edema: No Labs: CBC, BMP 01/28/17 06:00 01/28/17 06:00 INR, PTT INR 1.35 (0.82-1.09) H 01/25/17 22:10 Problem List - Problems (1) Abdominal pain during Assessment/Plan: Will advance diet in am Cont IVF Cont IV antibx MRCP showed distended GB w/ thickened calderon Code(s): O26.899 - OTH RELATED CONDITIONS, UNSPECIFIED TRIMESTER R10.9 - UNSPECIFIED ABDOMINAL PAIN
[2017-01-29] MEDS ORDERED: PIPERACILLIN/TAZOBACTAM 3.375 GM VIAL IVPB ONE ×3 (00:54→18:10)
[2017-01-29] MEDS ORDERED: DEXTROSE 5%-WATER - 50 ML IVPB ONE ×3 (00:54→18:11)
[2017-01-29] MEDS: METOCLOPRAMIDE HCL INJECTION 10 MG/2 ML VIAL IVPB SCH ×3 (01:04→18:50)
[2017-01-29] MEDS: DEXTROSE 5%-NORMAL SALINE 1,000 ML IV SCH ×4 (01:04→22:04)
[2017-01-29] MEDS: PIPERACILLIN/TAZOB 3.375 GM 3.375 GM in DEXTROSE 5%-WATER - 50 ML IVPB SCH ×3 (02:05→18:13)
[2017-01-29 07:42] LABS: BASOPHIL 0.5 % (0-2.0); EOSINOPHIL 0.7 % (0-4.5); MEAN PLT VOLUME 8.1 fl (7.5-11.1); NEUTROPHILS 75.4 % (42.8-82.8); PLATELET COUNT 236 K/MM3 (134-434); RDW 13.8 % (11.6-15.6); WHITE BLOOD COUNT 10.4 K/mm3 (4.0-10.0)
[2017-01-29] MEDS: ONDANSETRON 4 MG/2 ML VIAL IVPB PRN (07:47)
[2017-01-29 07:57] LABS: ALBUMIN 2.8 g/dl (3.4-5.0)
[2017-01-29 08:04] LABS: ALK PHOS 117 U/L (45-117); ANION GAP 7 (8-16); BILIRUBIN,TOTAL 0.9 mg/dL (0.2-1.0); CALCIUM 8.3 mg/dL (8.5-10.1); CO2 26 mmol/L (21-32); CREATININE 0.7 mg/dL (0.55-1.02); GLUCOSE,RANDOM 104 mg/dL (74-106); SGOT/AST 16 U/L (15-37); SGPT/ALT 47 U/L (12-78); TOT PROT 5.7 g/dl (6.4-8.2)
[2017-01-29] MEDS: RANITIDINE HCL 150 MG TABLET (FP) PO SCH ×2 (10:10→22:04)
--- NOTE | 2017-01-29 11:55 | PN ---
Progress Note (short form) - Note Progress Note: Pain significantly reduced- almost fully resolved Tolerating clears No nausea Vital Signs Period Temp Pulse Resp BP Sys/Flowers Pulse Ox Last 24 Hr 98.0 F-99.2 F 58-72 18-20 98-122/45-70 98-100 Abd soft, NT CBC,CMP WBC 10.4 K/mm3 (4.0-10.0) H 01/29/17 06:00 Corrected WBC (auto) Cancelled 01/26/17 06:05 RBC 3.98 M/mm3 (3.60-5.2) 01/29/17 06:00 Hgb 11.6 GM/dL (10.7-15.3) 01/29/17 06:00 Hct 35.1 % (32.4-45.2) 01/29/17 06:00 MCV 88.0 fl (80-96) 01/29/17 06:00 MCH 29.0 pg (25.7-33.7) 01/29/17 06:00 MCHC 33.0 g/dl (32.0-36.0) 01/29/17 06:00 RDW 13.8 % (11.6-15.6) 01/29/17 06:00 Plt Count 236 K/MM3 (134-434) 01/29/17 06:00 MPV 8.1 fl (7.5-11.1) 01/29/17 06:00 Neutrophils % 75.4 % (42.8-82.8) 01/29/17 06:00 Lymphocytes % 17.0 % (8-40) D 01/29/17 06:00 Monocytes % 6.4 % (3.8-10.2) 01/29/17 06:00 Eosinophils % 0.7 % (0-4.5) D 01/29/17 06:00 Basophils % 0.5 % (0-2.0) 01/29/17 06:00 Differential Comment Cancelled 01/26/17 06:05 Platelet Estimate Cancelled 01/26/17 06:05 Platelet Comment Cancelled 01/26/17 06:05 Platelet Comment Cancelled 01/26/17 06:05 RBC Morphology Cancelled 01/26/17 06:05 Sodium 141 mmol/L (136-145) 01/29/17 06:00 Potassium 3.7 mmol/L (3.5-5.1) 01/29/17 06:00 Chloride 108 mmol/L (98-107) H 01/29/17 06:00 Carbon Dioxide 26 mmol/L (21-32) D 01/29/17 06:00 Anion Gap 7 (8-16) L 01/29/17 06:00 BUN 2 mg/dL (7-18) L* D 01/29/17 06:00 Creatinine 0.7 mg/dL (0.55-1.02) 01/29/17 06:00 Creat Clearance w eGFR > 60 (>60) 01/29/17 06:00 POC Glucometer 94 UNITS (()) 01/28/17 23:47 Random Glucose 104 mg/dL (74-106) D 01/29/17 06:00 Lactic Acid 0.8 mmol/L (0.4-2.0) 01/27/17 06:15 Calcium 8.3 mg/dL (8.5-10.1) L 01/29/17 06:00 Total Bilirubin 0.9 mg/dL (0.2-1.0) D 01/29/17 06:00 AST 16 U/L (15-37) D 01/29/17 06:00 ALT 47 U/L (12-78) D 01/29/17 06:00 Alkaline Phosphatase 117 U/L (45-117) 01/29/17 06:00 Creatine Kinase 43 IU/L (26-192) 01/27/17 06:15 Troponin I < 0.02 ng/ml (0.00-0.05) 01/27/17 06:15 Total Protein 5.7 g/dl (6.4-8.2) L 01/29/17 06:00 Albumin 2.8 g/dl (3.4-5.0) L 01/29/17 06:00 Beta HCG, Quant 49067.5 mIU/ml 01/25/17 22:10 WBC and bilirubin now WNL Antibiotics Can start low fat diet If tolerating can discharge home on PO antibiotics
--- NOTE | 2017-01-29 14:07 | PN ---
Progress Note, Physician History of Present Illness: patient feels much better no pain now family in room - Current Medication List Current Medications: Active Medications Acetaminophen (Tylenol -) 650 mg PO Q4H PRN PRN Reason: FEVER OR PAIN Last Admin: 01/28/17 02:17 Dose: 650 mg Piperacillin Sod/Tazobactam (Sod 3.375 gm/ Dextrose) 50 mls @ 100 mls/hr IVPB Q8H-IV HARSH PRN Reason: Protocol Last Admin: 01/29/17 10:10 Dose: 100 mls/hr Dextrose/Sodium Chloride (D5-Ns -) 1,000 mls @ 75 mls/hr IV ASDIR HARSH Last Admin: 01/29/17 09:36 Dose: 75 mls/hr Metoclopramide HCl (Reglan Injection -) 10 mg IVPB Q8H-IV HARSH Last Admin: 01/29/17 09:36 Dose: 10 mg Ondansetron HCl (Zofran Injection) 4 mg IVPB Q8H PRN PRN Reason: NAUSEA AND/OR VOMITING Last Admin: 01/29/17 07:47 Dose: 4 mg Ranitidine HCl (Zantac -) 150 mg PO BID HARSH Last Admin: 01/29/17 10:10 Dose: 150 mg - Objective Vital Signs: Vital Signs Temperature 98.0 F 01/29/17 10:00 Pulse Rate 72 01/29/17 10:00 Respiratory Rate 18 01/29/17 10:00 Blood Pressure 122/70 01/29/17 10:00 O2 Sat by Pulse Oximetry (%) 98 01/29/17 10:00 Constitutional: Yes: No Distress, Calm, Obese Cardiovascular: Yes: Regular Rate and Rhythm Respiratory: Yes: Regular, CTA Bilaterally Gastrointestinal: Yes: Normal Bowel Sounds, Soft Musculoskeletal: Yes: WNL Extremities: Yes: WNL Neurological: Yes: Alert, Oriented Psychiatric: Yes: Alert, Oriented Labs: INR, PTT INR 1.35 (0.82-1.09) H 01/25/17 22:10 Assessment/Plan Problem List - Problems (1) Abdominal pain during Code(s): O26.899 - OTH RELATED CONDITIONS, UNSPECIFIED TRIMESTER R10.9 - UNSPECIFIED ABDOMINAL PAIN (2) Sludge in gallbladder Code(s): K82.8 - OTHER SPECIFIED DISEASES OF GALLBLADDER patients wbc has increased again plan continue abx continue current mgmt rest as per primary
--- NOTE | 2017-01-29 23:50 | PN ---
Progress Note, Physician History of Present Illness: Pt tolerating clear liquid No abdominal pain - Current Medication List Current Medications: Active Medications Acetaminophen (Tylenol -) 650 mg PO Q4H PRN PRN Reason: FEVER OR PAIN Last Admin: 01/28/17 02:17 Dose: 650 mg Piperacillin Sod/Tazobactam (Sod 3.375 gm/ Dextrose) 50 mls @ 100 mls/hr IVPB Q8H-IV HARSH PRN Reason: Protocol Last Admin: 01/29/17 18:13 Dose: 100 mls/hr Dextrose/Sodium Chloride (D5-Ns -) 1,000 mls @ 75 mls/hr IV ASDIR HARSH Last Admin: 01/29/17 22:04 Dose: 75 mls/hr Metoclopramide HCl (Reglan Injection -) 10 mg IVPB Q8H-IV HARSH Last Admin: 01/29/17 18:50 Dose: 10 mg Ondansetron HCl (Zofran Injection) 4 mg IVPB Q8H PRN PRN Reason: NAUSEA AND/OR VOMITING Last Admin: 01/29/17 07:47 Dose: 4 mg Ranitidine HCl (Zantac -) 150 mg PO BID HARSH Last Admin: 01/29/17 22:04 Dose: 150 mg - Objective Vital Signs: Vital Signs Temperature 98 F 01/29/17 22:00 Pulse Rate 60 01/29/17 22:00 Respiratory Rate 18 01/29/17 22:00 Blood Pressure 98/50 01/29/17 22:00 O2 Sat by Pulse Oximetry (%) 98 01/29/17 21:00 Constitutional: Yes: Well Nourished HENT: Yes: WNL Neck: Yes: WNL, Supple Cardiovascular: Yes: WNL, Regular Rate and Rhythm Respiratory: Yes: WNL, Regular, CTA Bilaterally Gastrointestinal: Yes: WNL, Normal Bowel Sounds, Soft Labs: INR, PTT INR 1.35 (0.82-1.09) H 01/25/17 22:10 Problem List - Problems (1) Abdominal pain during Assessment/Plan: WBC decreased Cont IV antibxs Advance diet in am and if tolerates dc planning after lunch Code(s): O26.899 - OTH RELATED CONDITIONS, UNSPECIFIED TRIMESTER R10.9 - UNSPECIFIED ABDOMINAL PAIN
[2017-01-30] MEDS ORDERED: PIPERACILLIN/TAZOBACTAM 3.375 GM VIAL IVPB ONE ×3 (01:00→18:00)
[2017-01-30] MEDS ORDERED: DEXTROSE 5%-WATER - 50 ML IVPB ONE ×3 (01:01→18:00)
[2017-01-30] MEDS: METOCLOPRAMIDE HCL INJECTION 10 MG/2 ML VIAL IVPB SCH ×3 (01:10→18:04)
[2017-01-30] MEDS: PIPERACILLIN/TAZOB 3.375 GM 3.375 GM in DEXTROSE 5%-WATER - 50 ML IVPB SCH ×3 (01:49→18:04)
[2017-01-30 08:02] LABS: BASOPHIL 0.6 % (0-2.0); EOSINOPHIL 0.7 % (0-4.5); MCH 29.6 pg (25.7-33.7); MCHC 33.9 g/dl (32.0-36.0); MEAN CELL VOLUME 87.3 fl (80-96); MEAN PLT VOLUME 8.3 fl (7.5-11.1); NEUTROPHILS 71.7 % (42.8-82.8); PLATELET COUNT 239 K/MM3 (134-434); RDW 13.7 % (11.6-15.6); WHITE BLOOD COUNT 10.1 K/mm3 (4.0-10.0)
[2017-01-30 08:26] LABS: ALBUMIN 2.8 g/dl (3.4-5.0); ALK PHOS 116 U/L (45-117); ANION GAP 10 (8-16); BILIRUBIN,TOTAL 0.9 mg/dL (0.2-1.0); CALCIUM 8.3 mg/dL (8.5-10.1); CO2 24 mmol/L (21-32); CREATININE 0.6 mg/dL (0.55-1.02); GLUCOSE,RANDOM 83 mg/dL (74-106); SGOT/AST 11 U/L (15-37); SGPT/ALT 36 U/L (12-78); TOT PROT 5.6 g/dl (6.4-8.2)
[2017-01-30] MEDS: RANITIDINE HCL 150 MG TABLET (FP) PO SCH ×2 (10:24→21:45)
[2017-01-30] MEDS: DEXTROSE 5%-NORMAL SALINE 1,000 ML IV SCH ×2 (10:28→18:36)
--- NOTE | 2017-01-30 12:17 | PN ---
Progress Note (short form) - Note Progress Note: + Vomited x 3 times Possible hyperemesis On low fat diet No abdominal pain Vital Signs Period Temp Pulse Resp BP Sys/Flowers Pulse Ox Last 24 Hr 97.7 F-98.5 F 60-80 18-18 96-116/48-55 98 Abd soft, NT CBC,CMP WBC 10.1 K/mm3 (4.0-10.0) H 01/30/17 06:00 Corrected WBC (auto) Cancelled 01/26/17 06:05 RBC 3.93 M/mm3 (3.60-5.2) 01/30/17 06:00 Hgb 11.6 GM/dL (10.7-15.3) 01/30/17 06:00 Hct 34.3 % (32.4-45.2) 01/30/17 06:00 MCV 87.3 fl (80-96) 01/30/17 06:00 MCH 29.6 pg (25.7-33.7) 01/30/17 06:00 MCHC 33.9 g/dl (32.0-36.0) 01/30/17 06:00 RDW 13.7 % (11.6-15.6) 01/30/17 06:00 Plt Count 239 K/MM3 (134-434) 01/30/17 06:00 MPV 8.3 fl (7.5-11.1) 01/30/17 06:00 Neutrophils % 71.7 % (42.8-82.8) 01/30/17 06:00 Lymphocytes % 21.1 % (8-40) D 01/30/17 06:00 Monocytes % 5.9 % (3.8-10.2) 01/30/17 06:00 Eosinophils % 0.7 % (0-4.5) 01/30/17 06:00 Basophils % 0.6 % (0-2.0) 01/30/17 06:00 Differential Comment Cancelled 01/26/17 06:05 Platelet Estimate Cancelled 01/26/17 06:05 Platelet Comment Cancelled 01/26/17 06:05 Platelet Comment Cancelled 01/26/17 06:05 RBC Morphology Cancelled 01/26/17 06:05 Sodium 140 mmol/L (136-145) 01/30/17 06:00 Potassium 3.3 mmol/L (3.5-5.1) L 01/30/17 06:00 Chloride 106 mmol/L (98-107) 01/30/17 06:00 Carbon Dioxide 24 mmol/L (21-32) 01/30/17 06:00 Anion Gap 10 (8-16) 01/30/17 06:00 BUN 1 mg/dL (7-18) L* D 01/30/17 06:00 Creatinine 0.6 mg/dL (0.55-1.02) 01/30/17 06:00 Creat Clearance w eGFR > 60 (>60) 01/30/17 06:00 POC Glucometer 94 UNITS (()) 01/28/17 23:47 Random Glucose 83 mg/dL (74-106) D 01/30/17 06:00 Lactic Acid 0.8 mmol/L (0.4-2.0) 01/27/17 06:15 Calcium 8.3 mg/dL (8.5-10.1) L 01/30/17 06:00 Total Bilirubin 0.9 mg/dL (0.2-1.0) 01/30/17 06:00 AST 11 U/L (15-37) L D 01/30/17 06:00 ALT 36 U/L (12-78) D 01/30/17 06:00 Alkaline Phosphatase 116 U/L (45-117) 01/30/17 06:00 Creatine Kinase 43 IU/L (26-192) 01/27/17 06:15 Troponin I < 0.02 ng/ml (0.00-0.05) 01/27/17 06:15 Total Protein 5.6 g/dl (6.4-8.2) L 01/30/17 06:00 Albumin 2.8 g/dl (3.4-5.0) L 01/30/17 06:00 Beta HCG, Quant 43435.5 mIU/ml 01/25/17 22:10 Continue antibiotics per ID Antiemetics If vomiting stops, can discharge home
--- NOTE | 2017-01-30 13:23 | PN ---
Progress Note, Physician History of Present Illness: nauseous otherwise stable - Current Medication List Current Medications: Active Medications Acetaminophen (Tylenol -) 650 mg PO Q4H PRN PRN Reason: FEVER OR PAIN Last Admin: 01/28/17 02:17 Dose: 650 mg Piperacillin Sod/Tazobactam (Sod 3.375 gm/ Dextrose) 50 mls @ 100 mls/hr IVPB Q8H-IV HARSH PRN Reason: Protocol Last Admin: 01/30/17 10:23 Dose: 100 mls/hr Dextrose/Sodium Chloride (D5-Ns -) 1,000 mls @ 75 mls/hr IV ASDIR HARSH Last Admin: 01/30/17 10:28 Dose: Not Given Metoclopramide HCl (Reglan Injection -) 10 mg IVPB Q8H-IV HARSH Last Admin: 01/30/17 10:24 Dose: 10 mg Ondansetron HCl (Zofran Injection) 4 mg IVPB Q8H PRN PRN Reason: NAUSEA AND/OR VOMITING Last Admin: 01/29/17 07:47 Dose: 4 mg Ranitidine HCl (Zantac -) 150 mg PO BID HARSH Last Admin: 01/30/17 10:24 Dose: 150 mg - Objective Vital Signs: Vital Signs Temperature 98.0 F 01/30/17 10:00 Pulse Rate 64 01/30/17 10:00 Respiratory Rate 18 01/30/17 10:00 Blood Pressure 96/50 01/30/17 10:00 O2 Sat by Pulse Oximetry (%) 98 01/29/17 21:00 Constitutional: Yes: No Distress, Calm, Obese Cardiovascular: Yes: Regular Rate and Rhythm Respiratory: Yes: Regular, CTA Bilaterally Gastrointestinal: Yes: Normal Bowel Sounds, Soft Musculoskeletal: Yes: WNL Extremities: Yes: WNL Neurological: Yes: Alert, Oriented Psychiatric: Yes: Alert, Oriented Labs: CBC, BMP 01/30/17 06:00 01/30/17 06:00 INR, PTT INR 1.35 (0.82-1.09) H 01/25/17 22:10 Assessment/Plan Problem List - Problems (1) Abdominal pain during Code(s): O26.899 - OTH RELATED CONDITIONS, UNSPECIFIED TRIMESTER R10.9 - UNSPECIFIED ABDOMINAL PAIN (2) Sludge in gallbladder Code(s): K82.8 - OTHER SPECIFIED DISEASES OF GALLBLADDER patients wbc has increased again plan continue abx continue current mgmt rest as per primary
[2017-01-30] MEDS ORDERED: POTASSIUM CHLORIDE TABS 20 MEQ TABLET.ER (FP) PO ONE ×2 (14:29→18:30)
--- NOTE | 2017-01-30 23:02 | PN ---
Progress Note, Physician History of Present Illness: Pt tolerating diet but has had vomiting - Current Medication List Current Medications: Active Medications Acetaminophen (Tylenol -) 650 mg PO Q4H PRN PRN Reason: FEVER OR PAIN Last Admin: 01/28/17 02:17 Dose: 650 mg Piperacillin Sod/Tazobactam (Sod 3.375 gm/ Dextrose) 50 mls @ 100 mls/hr IVPB Q8H-IV HARSH PRN Reason: Protocol Last Admin: 01/30/17 18:04 Dose: 100 mls/hr Dextrose/Sodium Chloride (D5-Ns -) 1,000 mls @ 75 mls/hr IV ASDIR HARSH Last Admin: 01/30/17 18:36 Dose: 75 mls/hr Metoclopramide HCl (Reglan Injection -) 10 mg IVPB Q8H-IV HARSH Last Admin: 01/30/17 18:04 Dose: 10 mg Ondansetron HCl (Zofran Injection) 4 mg IVPB Q8H PRN PRN Reason: NAUSEA AND/OR VOMITING Last Admin: 01/29/17 07:47 Dose: 4 mg Ranitidine HCl (Zantac -) 150 mg PO BID HARSH Last Admin: 01/30/17 21:45 Dose: 150 mg - Objective Vital Signs: Vital Signs Temperature 98.1 F 01/30/17 20:25 Pulse Rate 62 01/30/17 20:25 Respiratory Rate 18 01/30/17 20:25 Blood Pressure 106/58 01/30/17 20:25 O2 Sat by Pulse Oximetry (%) 97 01/30/17 20:15 Constitutional: Yes: Well Nourished HENT: Yes: WNL Neck: Yes: WNL, Supple Cardiovascular: Yes: WNL, Regular Rate and Rhythm Respiratory: Yes: WNL, Regular, CTA Bilaterally Gastrointestinal: Yes: WNL, Normal Bowel Sounds, Soft, Abdomen, Obese Musculoskeletal: Yes: WNL Extremities: Yes: WNL Edema: No Labs: CBC, BMP 01/30/17 06:00 01/30/17 06:00 INR, PTT INR 1.35 (0.82-1.09) H 01/25/17 22:10 Problem List - Problems (1) Abdominal pain during Assessment/Plan: WBC decreased Cont IV antibxs Tolerating diet DC planning in am Antibxs as per ID DC IVF Code(s): O26.899 - OTH RELATED CONDITIONS, UNSPECIFIED TRIMESTER R10.9 - UNSPECIFIED ABDOMINAL PAIN
[2017-01-31] MEDS ORDERED: PIPERACILLIN/TAZOBACTAM 3.375 GM VIAL IVPB ONE ×2 (00:04→10:01)
[2017-01-31] MEDS ORDERED: DEXTROSE 5%-WATER - 50 ML IVPB ONE ×2 (00:04→10:02)
[2017-01-31] MEDS: METOCLOPRAMIDE HCL INJECTION 10 MG/2 ML VIAL IVPB SCH ×2 (01:02→10:04)
[2017-01-31] MEDS: PIPERACILLIN/TAZOB 3.375 GM 3.375 GM in DEXTROSE 5%-WATER - 50 ML IVPB SCH ×2 (01:03→10:03)
[2017-01-31] MEDS: ONDANSETRON 4 MG/2 ML VIAL IVPB PRN (08:48)
[2017-01-31] MEDS: RANITIDINE HCL 150 MG TABLET (FP) PO SCH (10:03)
--- NOTE | 2017-01-31 12:45 | PN ---
Progress Note, Physician History of Present Illness: no issues patient doing well - Current Medication List Current Medications: Active Medications Acetaminophen (Tylenol -) 650 mg PO Q4H PRN PRN Reason: FEVER OR PAIN Last Admin: 01/28/17 02:17 Dose: 650 mg Piperacillin Sod/Tazobactam (Sod 3.375 gm/ Dextrose) 50 mls @ 100 mls/hr IVPB Q8H-IV HARSH PRN Reason: Protocol Last Admin: 01/31/17 10:03 Dose: 100 mls/hr Metoclopramide HCl (Reglan Injection -) 10 mg IVPB Q8H-IV HARSH Last Admin: 01/31/17 10:04 Dose: Not Given Ondansetron HCl (Zofran Injection) 4 mg IVPB Q8H PRN PRN Reason: NAUSEA AND/OR VOMITING Last Admin: 01/31/17 08:48 Dose: 4 mg Ranitidine HCl (Zantac -) 150 mg PO BID HARSH Last Admin: 01/31/17 10:03 Dose: 150 mg - Objective Vital Signs: Vital Signs Temperature 98 F 01/31/17 10:00 Pulse Rate 73 01/31/17 10:00 Respiratory Rate 18 01/31/17 10:00 Blood Pressure 101/67 01/31/17 10:00 O2 Sat by Pulse Oximetry (%) 97 01/30/17 20:15 Constitutional: Yes: No Distress, Calm HENT: Yes: Atraumatic, Normocephalic Cardiovascular: Yes: Regular Rate and Rhythm Respiratory: Yes: Regular, CTA Bilaterally Gastrointestinal: Yes: Normal Bowel Sounds, Soft Musculoskeletal: Yes: WNL Extremities: Yes: WNL Neurological: Yes: Alert, Oriented Psychiatric: Yes: Alert, Oriented Labs: CBC, BMP 01/30/17 06:00 01/30/17 06:00 INR, PTT INR 1.35 (0.82-1.09) H 01/25/17 22:10 Assessment/Plan Problem List - Problems (1) Abdominal pain during Code(s): O26.899 - OTH RELATED CONDITIONS, UNSPECIFIED TRIMESTER R10.9 - UNSPECIFIED ABDOMINAL PAIN (2) Sludge in gallbladder Code(s): K82.8 - OTHER SPECIFIED DISEASES OF GALLBLADDER patients wbc has increased again plan continue abx continue current mgmt rest as per primary can stop abx after today
[2017-01-31 14:21] VITALS: BP 115/76; PULSE 60; TEMP 98.4
== END 2017-01-31 16:13 | disposition home or self-care (01) | DRG 566 ==
LOC: JER 20:26 → JERBED 01-26 02:40 → J7W 01-26 04:13 → OBSVTOIN 01-29 08:09
PROVIDERS: ADMIT Internal Medicine; ATTEND Internal Medicine
DX: O99.611 Diseases of the digestive system complicating pregnancy, first trimester (principal); K81.0 Acute cholecystitis; E86.0 Dehydration; E66.01 Morbid (severe) obesity due to excess calories; O21.1 Hyperemesis gravidarum with metabolic disturbance; O99.211 Obesity complicating pregnancy, first trimester; Z3A.01 Less than 8 weeks gestation of pregnancy; J45.909 Unspecified asthma, uncomplicated
CPT/HCPCS: 36415; 74181-TC; 76705-TC; 76817-TC; 76856-TC; 80053; 81003; 81015; 83605; 84484; 84702; 85025; 85610; 87086; 99284-25; G0378

== ENCOUNTER 2017-06-04 14:21 | Emergency (ER) | payer OTHER ==
[2017-06-04 14:36] VITALS: BMI 42.5
[2017-06-04] MEDS ORDERED: ALBUTEROL SO4 2.5/IPRATROPIUM 0.5 INH SOL 3 ML VIAL.NEB. NEB ONE ×2 (14:37→16:30)
--- NOTE | 2017-06-04 14:37 | PDOC ---
Rapid Medical Evaluation Chief Complaint: Shortness of Breath Time Seen by Provider: 06/04/17 14:33 Medical Evaluation: Allergies Allergy/AdvReac Type Severity Reaction Status Date / Time No Known Allergies Allergy Verified 01/25/17 20:31 06/04/17 14:34 The patient presents with a chief complaint of: One day of shortness of breath and chest tightness. States that she has had a cough with white sputum. Pt. is currently 6 mo . Denies abdominal pain, vaginal bleeding. H of asthma I have performed a brief in-person evaluation of this patient; Pertinent physical exam findings: Tight lung sounds. Scattered inspiratory wheezing I have ordered the following: Duoneb, CBC, CMP, The patient will proceed to the ED for further evaluation.
[2017-06-04 16:10] LABS: BASO % 0.2 % (0-2.0); EOS % 0.1 % (0-4.5); HEMATOCRIT 38.9 % (32.4-45.2); HEMOGLOBIN 13.1 GM/dL (10.7-15.3); LYMPH % 6.1 % (8-40); MCH 28.9 pg (25.7-33.7); MCHC 33.6 g/dl (32.0-36.0); MEAN PLT VOLUME 8.4 fl (7.5-11.1); MONO % 4.5 % (3.8-10.2); NEUT % 89.1 % (42.8-82.8); PLATELET COUNT 326 K/MM3 (134-434); RBC 4.52 M/mm3 (3.60-5.2); RDW 13.5 % (11.6-15.6); WHITE BLOOD COUNT 12.4 K/mm3 (4.0-10.0)
--- NOTE | 2017-06-04 16:30 | PDOC ---
History of Present Illness - General Chief Complaint: Shortness of Breath Stated Complaint: 6 MONTHS /SOB Time Seen by Provider: 06/04/17 14:33 - History of Present Illness Initial Comments: 06/04/17 16:45 Ms. Faust is a 21 yo female w/ pmh of childhood asthma only who presents c/ o a 2 day history of cough. She reports that her mother and brother both have bronchitis and that she began coughing yesterday as well. Her morning sickness got worse with the cough and she has experienced some increased nausea. Her last episode of vomiting also produced scant blood. She also reports pain with deep inspiration and pain with pressing on her chest. The patient denies shortness of breath, headache and dizziness. Denies fever, chills, diarrhea, and constipation. Denies dysuria, frequency, urgency and hematuria. Allergies: NKDA Past History - Past Medical History Allergies/Adverse Reactions: Allergies Allergy/AdvReac Type Severity Reaction Status Date / Time No Known Allergies Allergy Verified 06/04/17 14:36 Home Medications: Ambulatory Orders NK [No Known Home Medication] 01/26/17 Asthma: Yes COPD: No - Immunization History Immunization Up to Date: Yes - Suicide/Smoking/Psychosocial Hx Smoking History: Never smoked Have you smoked in the past 12 months: No Number of Cigarettes Smoked Daily: 0 Cigars Per Day: 0 Information on smoking cessation initiated: No Hx Alcohol Use: No Drug/Substance Use Hx: No Substance Use Type: None Hx Substance Use Treatment: No Review of Systems - Review of Systems Comments:: 06/04/17 16:48 GENERAL/CONSTITUTIONAL: No fever or chills. No weakness. HEAD, EYES, EARS, NOSE AND THROAT: No change in vision. No ear pain or discharge. No sore throat. CARDIOVASCULAR: +Pain with deep inspiration and when she presses on her chest RESPIRATORY: +Cough as described. GASTROINTESTINAL: +Nausea with vomiting as described. No diarrhea or constipation. GENITOURINARY: No dysuria, frequency, or change in urination. MUSCULOSKELETAL: No joint or muscle swelling or pain. No neck or back pain. SKIN: No rash NEUROLOGIC: No headache, vertigo, loss of consciousness, or change in strength/ sensation. ENDOCRINE: No increased thirst. No abnormal weight change HEMATOLOGIC/LYMPHATIC: No anemia, easy bleeding, or history of blood clots. ALLERGIC/IMMUNOLOGIC: No hives or skin allergy. *Physical Exam - Vital Signs Last Vital Signs Temp Pulse Resp BP Pulse Ox 98.9 F 117 H 19 128/47 97 06/04/17 14:34 06/04/17 14:34 06/04/17 14:34 06/04/17 14:34 06/04/17 14:34 - Physical Exam Comments: 06/04/17 16:49 GENERAL: Awake, alert, and fully oriented, in no acute distress HEAD: No signs of trauma, normocephalic, atraumatic EYES: PERRLA, EOMI, sclera anicteric, conjunctiva clear ENT: Auricles normal inspection, hearing grossly normal, nares patent, oropharynx clear without exudates. Moist mucosa NECK: Normal ROM, supple, no lymphadenopathy, JVD, or masses LUNGS: +Midline chest TTP. No distress, speaks full sentences, clear to auscultation bilaterally HEART: +Tachycardic, regular rhythym, normal S1 and S2, no murmurs, rubs or gallops, peripheral pulses normal and equal bilaterally. ABDOMEN: Soft, nontender, normoactive bowel sounds. No guarding, no rebound. No masses EXTREMITIES: Normal inspection, Normal range of motion, no edema. No clubbing or cyanosis. NEUROLOGICAL: Cranial nerves II through XII grossly intact. Normal speech, normal gait, no focal sensorimotor deficits SKIN: Warm, Dry, normal turgor, no rashes or lesions noted. ED Treatment Course - LABORATORY CBC & Chemistry Diagram: 06/04/17 15:37 06/04/17 15:37 - ADDITIONAL ORDERS Additional order review: 06/04/17 15:37 RBC 4.52 MCV 86.0 MCHC 33.6 RDW 13.5 MPV 8.4 Neutrophils % 89.1 H D Lymphocytes % 6.1 L D Monocytes % 4.5 Eosinophils % 0.1 D Basophils % 0.2 Medical Decision Making - Medical Decision Making 06/04/17 17:33 Ms. Faust is a G1PO 6 month 21 yo female presenting with symptoms of viral illness. With close family history of bronchitis as noted above and non- focal exam, will discharge patient with dx of viral illness and discharge with instructions to follow-up with PCP as needed for further evaluation. Patient currently feeling better after 1L NS and tylenol. Discussed patient with L&D who will evaluate following discharge. Patient verbalized understanding with plan and will follow-up as discussed. *DC/Admit/Observation/Transfer Diagnosis at time of Disposition: Viral respiratory illness - Discharge Dispostion Disposition: HOME - Referrals Referrals: Messi Lozada MD [Primary Care Provider] - - Patient Instructions Printed Discharge Instructions: DI for Viral Syndrome Additional Instructions: Please return if any difficulty breathing, increased pain, or any other concerning symptoms. Follow-up with [facility] today and primary care provider within 1-2 days for evaluation. - Post Discharge Activity
[2017-06-04 16:34] LABS: ALBUMIN 2.6 g/dl (3.4-5.0); ANION GAP 12 (8-16); BLOOD UREA NITROGEN 5 mg/dL (7-18); CHLORIDE 104 mmol/L (98-107); CO2 20 mmol/L (21-32); GLUCOSE,RANDOM 91 mg/dL (74-106); POTASSIUM 3.7 mmol/L (3.5-5.1); SODIUM 136 mmol/L (136-145)
[2017-06-04 16:39] LABS: ALK PHOS 314 U/L (45-117); BILIRUBIN,TOTAL 0.4 mg/dL (0.2-1.0); CREATININE 0.5 mg/dL (0.55-1.02); SGOT/AST 45 U/L (15-37); SGPT/ALT 75 U/L (12-78); TOT PROT 6.9 g/dl (6.4-8.2)
[2017-06-04] MEDS ORDERED: SODIUM CHLORIDE 1,000 ML IV STA (16:42)
[2017-06-04] MEDS ORDERED: ACETAMINOPHEN 1000 MG/100 ML VIAL (NON FORMULARY) IVPB ONE (16:51)
[2017-06-04] MEDS ORDERED: ACETAMINOPHEN INJECTION 100 ML IVPB ONE (17:01)
--- NOTE | 2017-06-04 17:23 | PDOC ---
Attending Attestation - Resident Resident Name: CorbyfangRcDave - ED Attending Attestation I have performed the following: I have examined & evaluated the patient, The case was reviewed & discussed with the resident, I agree w/resident's findings & plan, Exceptions are as noted - HPI HPI: 06/04/17 17:22 21 yo female who is in second trimester p/w coughing - Physicial Exam PE: 06/04/17 17:23 wnwd 30 yo female with cough and musculoskeletal chest pain head ncat neck supple lungs no crackles and protuberant ext no edema,no cellulitis neuro no gross focal deficits skin warm,dry psych appropriate - Medical Decision Making 06/04/17 17:25 pt to be discharged and sent to L and D for monitoring. I called themn and spoke to the [facility] D nurse about the pt who will be brought upstairs IMP bronchitis,URI 06/04/17 17:34
[2017-06-04 18:28] VITALS: BP 104/81; PULSE 112; TEMP 98.6
== END 2017-06-04 19:00 | disposition home or self-care (01) ==
LOC: JER 14:21
PROC: 3E0337Z Introduction of Electrolytic and Water Balance Substance into Peripheral Vein, Percutaneous Approach (ICD-10-PCS; principal; 2017-06-04)
PROC: 3E033NZ Introduction of Analgesics, Hypnotics, Sedatives into Peripheral Vein, Percutaneous Approach (ICD-10-PCS; 2017-06-04)
PROC: 3E0F7GC Introduction of Other Therapeutic Substance into Respiratory Tract, Via Natural or Artificial Opening (ICD-10-PCS; 2017-06-04)
DX: O99.89 Other specified diseases and conditions complicating pregnancy, childbirth and the puerperium (principal); J40 Bronchitis, not specified as acute or chronic; Z3A.24 24 weeks gestation of pregnancy
CPT/HCPCS: 36415; 80053; 85025; 94640; 96361; 96374; 99282-25

== ENCOUNTER 2017-09-17 10:00 | Inpatient (IN) | payer OTHER ==
[2017-09-17] MEDS ORDERED: AMPICILLIN - 2 GM in SODIUM CHLORIDE 100 ML IVPB ONE (10:30)
[2017-09-17] MEDS ORDERED: BUTORPHANOL TARTRATE 1 MG/ML VIAL IVPUSH ONE (10:50)
[2017-09-17] MEDS ORDERED: PROMETHAZINE HCL 25 MG/1 ML VIAL IVPB ONE (10:50)
[2017-09-17] MEDS ORDERED: BUTORPHANOL TARTRATE 1 MG/ML VIAL ONE ×2 (10:56)
[2017-09-17] MEDS ORDERED: PROMETHAZINE HCL 25 MG/1 ML VIAL ONE (10:56)
[2017-09-17] MEDS ORDERED: DEXTROSE 5%-LACTATED RINGERS 1,000 ML IV SCH (11:15)
[2017-09-17] MEDS ORDERED: TUBERCULIN PPD 5 TU/0.1ML SYRINGE (IN PATIENT USE ONLY) ID ONE (11:15)
[2017-09-17 11:16] VITALS: BMI 44.2
[2017-09-17 11:23] LABS: BASO % 0.6 % (0-2.0); EOS % 0.6 % (0-4.5); HEMATOCRIT 36.7 % (32.4-45.2); MCH 25.7 pg (25.7-33.7); MCHC 32.8 g/dl (32.0-36.0); MEAN CELL VOLUME 78.6 fl (80-96); NEUT % 72.8 % (42.8-82.8); PLATELET COUNT 345 K/MM3 (134-434); RBC 4.67 M/mm3 (3.60-5.2)
[2017-09-17 11:49] LABS: INR 0.9 (0.82-1.09); PROTHROMBIN TIME (PATIENT) 10.2 SEC (9.7-13.0)
[2017-09-17 11:52] LABS: ACTIVATED PTT 30.9 SECONDS (26.9-34.4)
[2017-09-17 12:32] LABS: ANION GAP 10 (8-16); BLOOD UREA NITROGEN 10 mg/dL (7-18); CALCIUM 8.5 mg/dL (8.5-10.1); CHLORIDE 110 mmol/L (98-107); CO2 20 mmol/L (21-32); CREATININE 0.8 mg/dL (0.55-1.02); GLUCOSE,RANDOM 63 mg/dL (74-106); SODIUM 140 mmol/L (136-145)
[2017-09-17] MEDS ORDERED: FENTANYL/BUPIVACAINE/NS/PF - PCEA - 50 ML DISP.SYRIN EP ONE ×2 (13:58→19:13)
[2017-09-17] MEDS ORDERED: ONDANSETRON 4 MG/2 ML VIAL ONE (14:04)
[2017-09-17] MEDS ORDERED: NALOXONE HCL 0.4 MG/ML VIAL IVPUSH PRN (14:16)
[2017-09-17] MEDS ORDERED: LIDO 2%/EPI 1:200000 PRESRVFRE (20 ML SDVIAL) ONE (14:22)
[2017-09-17] MEDS ORDERED: BUPIVACAINE HCL/PF 0.25% (2.5MG/ML) 10 ML VIAL ONE (14:22)
[2017-09-17] MEDS: AMPICILLIN - 1 GM in SODIUM CHLORIDE 100 ML IVPB SCH ×3 (14:30→22:51)
[2017-09-17] MEDS ORDERED: ELECTROLYTE-148 SOLN 1,000 ML IV SCH (14:30)
[2017-09-17] MEDS: FENTANYL/BUPIVACAINE/NS/PF - PCEA - 50 ML DISP.SYRIN EP SCH (14:55)
--- NOTE | 2017-09-17 15:01 | HP ---
Past Medical History - Primary Care Physician PCP:: Edmond Seals - Admission Chief Complaint: 21yo P0 @ 40.1wks presented @ 10am with ctx, no VB, no LOF, +FM History of Present Illness: 1. GBS + on Ampicillin 2. Cholelithiasis - last attack @ 6wks of 3. Asthma as a child no intubations, IV steroids in - on Ventolin 4. Morbid obesity - 232lb - 250lb = 18lb wt gain, GCT - 111, EFW 7.5lb 5. 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 Weeks Gestation by Dates: 40.1 ...EDC by Dates: 09/16/17 ...EDC by Sono: 09/16/17 Heme/Onc: No: Anemia, B12 Deficiency, Bleeding Disorder, Cancer, Current Chemotherapy, Current Radiation Therapy, Hemochromatosis, Hypercoaguable State, Myeloproliferative Synd, Sickle Cell Disease, Sickle Cell Trait, Thrombocytopenia, Other Endocrine: No: [place]'s Disease, Ransom's Disease, Diabetes Insipidus, Diabetes Mellitus, Hyperparathyroidism, Hyperthyroidism, Hypothyroidism, Osteopenia, SIADH, Other - Past Surgical History Past Surgical History: Yes: None Hx Myomectomy: No Hx Transabdominal Cerclage: No - Smoking History Smoking history: Never smoked Have you smoked in the past 12 months: No Aproximately how many cigarettes per day: 0 - Alcohol/Substance Use Hx Alcohol Use: No History of Substance Use: reports: None - Social History History of Recent Travel: No Home Medications - Allergies Allergies/Adverse Reactions: Allergies Allergy/AdvReac Type Severity Reaction Status Date / Time No Known Allergies Allergy Verified 09/15/17 04:33 - Home Medications Home Medications: Ambulatory Orders Vit 108/Iron/Folic AC [ One Tablet] 1 each PO DAILY 06/04/17 Review of Systems - Review of Systems Constitutional: reports: No Symptoms Eyes: reports: No Symptoms HENT: reports: No Symptoms Neck: reports: No Symptoms Cardiovascular: reports: No Symptoms Respiratory: reports: No Symptoms Gastrointestinal: reports: No Symptoms Genitourinary: reports: No Symptoms Breasts: reports: No Symptoms Reported Musculoskeletal: reports: No Symptoms Integumentary: reports: No Symptoms Neurological: reports: No Symptoms Endocrine: reports: No Symptoms Hematology/Lymphatic: reports: No Symptoms Psychiatric: reports: No Symptoms Physical Exam - Maternity Vital Signs: Vital Signs Temperature 97.8 F 09/17/17 13:00 Pulse Rate 58 L 09/17/17 13:00 Respiratory Rate 20 09/17/17 13:00 Blood Pressure 105/66 09/17/17 13:00 O2 Sat by Pulse Oximetry (%) Constitutional: Yes: Well Nourished, No Distress, Calm Eyes: Yes: WNL, Conjunctiva Clear HENT: Yes: WNL Neck: Yes: WNL, Supple, Trachea Midline Cardiovascular: Yes: WNL Lungs: Clear to auscultation Breast(s): Yes: WNL - Abdominal Exam/OB Fundal Height: 40 (EFW 7.5lb) Number of Fetuses: Single Presentation: Vertex Contractions: Yes Regularity: Regular (Q3min) Intensity: Moderate Monitor Mode: External Heart Rate (range): 130's Heart Rate Location: Midline Category: I Accelerations: Uniform Decelerations: None - Vaginal Exam/OB Vaginal Bleediing: No Speculum Exam: No Dilatation (cm): 6 Effacement (%): 100 Amniotic Membrane Status: Bulging (AROM @ 15:30) Amniotic Fluid: Yes: Clear Presentation: Vertex/Position Station: -2 - Physical Exam Musculoskeletal: Yes: WNL Extremities: Yes: WNL Edema: No Integumentary: Yes: WNL Deep Tendon Reflex Grade: Normal +2 ...Motor Strength: WNL Psychiatric: Yes: WNL - Labs Lab Results: CBC, BMP 09/17/17 10:50 09/17/17 10:33 Assessment/Plan 21 yo P 0 @ 40.1 wks in active labor s/p Stadol/Phenergan now comfortable with epidural GBS positive s/p x 2 doses of Ampicillin for prophylaxis AROM and Oxitocin for augmentation Fetus category 1 Continue monitoring progress of labor
[2017-09-17] MEDS ORDERED: OXYTOCIN 30 UNITS in 0.9% NS 30 UNIT/500 ML INFUS.BAG IVPB SCH (16:00)
[2017-09-17] MEDS ORDERED: OXYTOCIN 30 UNITS in 0.9% NS 30 UNIT/500 ML INFUS.BAG IVPB ONE (16:10)
[2017-09-17] MEDS ORDERED: AMPICILLIN SODIUM 1 GM VIAL ONE (18:13)
[2017-09-17] MEDS ORDERED: LIDOCAINE HCL 1% PRESERVATIVE FREE - 30ML VIAL ONE (20:00)
--- NOTE | 2017-09-17 20:04 | PN ---
Ante-Partal Exam - Subjective Subjective: No complaints. She feels pelvic pressure. Epidural in place. Vital Signs: Vital Signs Temperature 99.2 F 09/17/17 19:00 Pulse Rate 63 09/17/17 19:10 Respiratory Rate 18 09/17/17 19:10 Blood Pressure 131/82 09/17/17 19:10 O2 Sat by Pulse Oximetry (%) 100 09/17/17 19:10 Bleeding: No Headache: No Visual changes: No Right upper quadrant pain: No Pain (scale 1-10): 0 - Contractions Contractions: Yes Regularity: Regular Intensity: Unaware Monitor Mode: External - Exam during Labor Heart Rate: 140 Variability: Moderate Heart Rate Location: Midline Category: II Monitor Accelerations: Present Monitor Decelerations: Variable Exam: Vaginal Dilatation (cm): 10 Effacement (%): 100 Amniotic Membrane Status: Leaking Amniotic Fluid: Clear Presentation: Vertex Station: +3 - Intrapartum Hemorrhage Risk Medium Risk Factors: None High Risk Factors: None Risk Score: 0 Risk Level: Low Risk - Assessment/Plan Assessment/Plan: 21 yo P0 with spontaneous labor. pt is now in second stage of labor. She does not feel contractions, only pressure. She will try to push Fetus requires no intervention Anticipate .
[2017-09-17] MEDS ORDERED: BENZOCAINE 20% 57 GM BOTTLE TP PRN (20:47)
[2017-09-17] MEDS ORDERED: BISACODYL 10 MG SUPP.RECT RC PRN (20:47)
[2017-09-17] MEDS ORDERED: ACETAMINOPHEN 325 MG TABLET (FP) PO PRN (20:47)
[2017-09-17] MEDS ORDERED: oxyCODONE HCL 5 MG TABLET PO PRN (20:47)
[2017-09-17] MEDS ORDERED: WITCH HAZEL 50% (TUCKS) 40 PAD/JAR PAD TP PRN (20:47)
[2017-09-17] MEDS ORDERED: BENZOCAINE 28 GM HEMORRHOIDAL OINTMENT TP PRN (20:47)
[2017-09-17] MEDS ORDERED: METHYLERGONOVINE MALEATE 0.2 MG/1 ML AMP IM PRN (20:47)
[2017-09-17] MEDS ORDERED: D5W-LR W/ 20 UNITS OXYTOCIN 1,000 ML IV SCH (21:00)
[2017-09-17] MEDS ORDERED: OXYTOCIN 20 UNITS in 0.9% NS 20 UNIT/1,000 ML INFUS.BAG IV SCH (21:00)
[2017-09-17 21:15] LABS: ARTERIAL BLOOD GAS BASE EXCESS -5.2 meq/l (-2-2); ARTERIAL BLOOD GAS PCO2 50.3 mmHg (35-45); ARTERIAL BLOOD GAS pH 7.26 (7.35-7.45)
[2017-09-17 21:20] LABS: ARTERIAL BLD GAS O2 SATURATION 35.2 % (90-98.9); ARTERIAL BLOOD GAS PO2 19.8 mmHg (80-100)
[2017-09-17 21:22] LABS: VENOUS PC02 44.6 mmHg (38-52); VENOUS PH 7.3 (7.32-7.42); VENOUS PO2 22.1 mmHg (28-48)
[2017-09-17] MEDS ORDERED: IBUPROFEN 600 MG TABLET (FP) PO ONE (22:06)
[2017-09-17] MEDS ORDERED: ACETAMINOPHEN 325 MG TABLET (FP) ONE ×2 (22:06→22:09)
[2017-09-17] MEDS: IBUPROFEN 600 MG TABLET (FP) PO PRN (22:10)
[2017-09-18] MEDS: AMPICILLIN - 1 GM in SODIUM CHLORIDE 100 ML IVPB SCH ×2 (04:19→06:52)
[2017-09-18] MEDS: FERROUS SO4 325 MG TABLET (FP) PO SCH ×2 (07:34→18:08)
[2017-09-18 08:59] LABS: BASO % 0.3 % (0-2.0); EOS % 0.1 % (0-4.5); HEMOGLOBIN 10.5 GM/dL (10.7-15.3); LYMPH % 13.3 % (8-40); MCH 26.2 pg (25.7-33.7); MCHC 32.9 g/dl (32.0-36.0); MEAN CELL VOLUME 79.5 fl (80-96); MONO % 5.7 % (3.8-10.2); NEUT % 80.6 % (42.8-82.8); PLATELET COUNT 292 K/MM3 (134-434); RBC 4.03 M/mm3 (3.60-5.2); RDW 16.5 % (11.6-15.6); WHITE BLOOD COUNT 18.4 K/mm3 (4.0-10.0)
[2017-09-18] MEDS: PRENATAL VITAMINS W/ FOLIC ACID TABLET (FP) PO SCH (09:22)
[2017-09-18] MEDS ORDERED: FLU VACC QS2017-18 36MOS UP/PF 60 MCG/0.5 ML SYRINGE IM ONE (10:00)
[2017-09-18] MEDS ORDERED: DIPHTH,PERTUSS(ACELL),TET 0.5 ML DISP.SYRIN IM ONE (10:00)
--- NOTE | 2017-09-18 11:50 | DS ---
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: Vital Signs Temperature 98.1 F 09/18/17 04:00 Pulse Rate 70 09/18/17 04:00 Respiratory Rate 20 09/18/17 04:00 Blood Pressure 106/53 09/18/17 04:00 O2 Sat by Pulse Oximetry (%) 100 09/17/17 21:45 Constitutional: Yes: Well Nourished, No Distress, Calm Eyes: Yes: WNL, Conjunctiva Clear, EOM Intact HENT: Yes: WNL, Atraumatic, Normocephalic Neck: Yes: WNL, Supple, Trachea Midline Cardiovascular: Yes: WNL, Regular Rate and Rhythm Respiratory: Yes: WNL, Regular, CTA Bilaterally Gastrointestinal: Yes: WNL ...Rectal Exam: Yes: WNL Renal/: Yes: WNL ....Post : Yes: Uterus firm, Uterus non-tender, Slight lochia rubra Breast(s): Yes: WNL Musculoskeletal: Yes: WNL Extremities: Yes: WNL Edema: No Integumentary: Yes: WNL Neurological: Yes: WNL, Alert, Oriented ...Motor Strength: WNL Psychiatric: Yes: WNL, Alert, Oriented Labs: CBC, BMP 09/18/17 08:00 09/17/17 10:33 Delivery - Delivery Vaginal Delivery: Spontaneous (no complication) Type of Anesthesia: Epidural Episiotomy/Laceration: 1st degree EBL (cc): 300 Delivery, Single - Stages of Labor Date 1st Stage Initiatied: 09/17/17 Time 1st Stage Initiated: 10:30 Date 2nd Stage Initiated: 09/17/17 Time 2nd Stage Initiated: 20:00 Date of Delivery: 09/17/17 Time of Delivery: 20:31 Time Placenta Delivered: 20:35 Placenta: Yes: Spontaneous - 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
--- NOTE | 2017-09-18 14:58 | PN ---
Post Progress Note - Subjective Subjective: No complaints Post Day: 1 Type of Delivery: Vital Signs: Vital Signs Temperature 98.1 F 09/18/17 04:00 Pulse Rate 70 09/18/17 04:00 Respiratory Rate 20 09/18/17 04:00 Blood Pressure 106/53 09/18/17 04:00 O2 Sat by Pulse Oximetry (%) 100 09/17/17 21:45 Breast Exam: Yes: Soft Uterus: Yes: Fundus Firm, Fundus below umbilicus Abdomen/GI: Yes: Abdomen soft, Abdominal Distention, Passing flatus, Tolerating PO Lochia: Yes: Rubra Lochia, amount: Small Extremities: Yes: Calves non-tender Perineum: Yes: Intact Activity: Ambulating - Labs Labs: CBC WBC 18.4 K/mm3 (4.0-10.0) H D 09/18/17 08:00 RBC 4.03 M/mm3 (3.60-5.2) 09/18/17 08:00 Hgb 10.5 GM/dL (10.7-15.3) L D 09/18/17 08:00 Hct 32.0 % (32.4-45.2) L 09/18/17 08:00 MCV 79.5 fl (80-96) L 09/18/17 08:00 MCH 26.2 pg (25.7-33.7) 09/18/17 08:00 MCHC 32.9 g/dl (32.0-36.0) 09/18/17 08:00 RDW 16.5 % (11.6-15.6) H 09/18/17 08:00 Plt Count 292 K/MM3 (134-434) 09/18/17 08:00 MPV 9.0 fl (7.5-11.1) 09/18/17 08:00 Neutrophils % 80.6 % (42.8-82.8) 09/18/17 08:00 Lymphocytes % 13.3 % (8-40) D 09/18/17 08:00 Monocytes % 5.7 % (3.8-10.2) 09/18/17 08:00 Eosinophils % 0.1 % (0-4.5) D 09/18/17 08:00 Basophils % 0.3 % (0-2.0) 09/18/17 08:00 Assessment/Plan 31yo P1 s/p , doing well stable, afebrile. care instructions reviewed. Continue routine care. Ambulation encouraged Discharge instruction reviewed.
[2017-09-18] MEDS ORDERED: SENNOSIDES/DOCUSATE COMBO (SENNA PLUS) TABLET (UD) PO PRN (22:00)
[2017-09-19] MEDS: FERROUS SO4 325 MG TABLET (FP) PO SCH ×2 (08:00→16:54)
[2017-09-19] MEDS: FENTANYL/BUPIVACAINE/NS/PF - PCEA - 50 ML DISP.SYRIN EP SCH (08:33)
--- NOTE | 2017-09-19 08:52 | PN ---
Post Progress Note - Subjective Subjective: Patient without acute complaints. Reports tolerating oral intake without nausea or vomiting. Ambulating without dizziness. Denies fevers or chills. Pain well controlled with oral pain medication. without difficulty. Passing flatus. Post Day: 2 Type of Delivery: Vital Signs: Vital Signs Temperature 98.2 F 09/19/17 00:00 Pulse Rate 80 09/19/17 00:00 Respiratory Rate 21 09/19/17 00:00 Blood Pressure 121/36 09/19/17 00:00 O2 Sat by Pulse Oximetry (%) 100 09/17/17 21:45 Breast Exam: Yes: Soft Uterus: Yes: Fundus Firm, Fundus below umbilicus Abdomen/GI: Yes: Abdomen soft, Passing flatus, Tolerating PO. No: Abdominal Distention, Tender Lochia: Yes: Serosa Lochia, amount: Small Extremities: Yes: Edema (trace). No: Calves non-tender Activity: Ambulating - Labs Labs: CBC WBC 18.4 K/mm3 (4.0-10.0) H D 09/18/17 08:00 RBC 4.03 M/mm3 (3.60-5.2) 09/18/17 08:00 Hgb 10.5 GM/dL (10.7-15.3) L D 09/18/17 08:00 Hct 32.0 % (32.4-45.2) L 09/18/17 08:00 MCV 79.5 fl (80-96) L 09/18/17 08:00 MCH 26.2 pg (25.7-33.7) 09/18/17 08:00 MCHC 32.9 g/dl (32.0-36.0) 09/18/17 08:00 RDW 16.5 % (11.6-15.6) H 09/18/17 08:00 Plt Count 292 K/MM3 (134-434) 09/18/17 08:00 MPV 9.0 fl (7.5-11.1) 09/18/17 08:00 Neutrophils % 80.6 % (42.8-82.8) 09/18/17 08:00 Lymphocytes % 13.3 % (8-40) D 09/18/17 08:00 Monocytes % 5.7 % (3.8-10.2) 09/18/17 08:00 Eosinophils % 0.1 % (0-4.5) D 09/18/17 08:00 Basophils % 0.3 % (0-2.0) 09/18/17 08:00 Assessment/Plan 21 yo PPD # 2 s/p , afebrile, vital signs stable doing well 1. Patient stable for discharge home today. 2. Patient encouraged to contact MD for: - Severe pain not controlled by oral pain medication - Fevers or chills - Nausea or vomiting, intolerance of oral intake 3. Patient to follow up in office in 4-6 weeks for visit 4. Patient states desires circumcision for infant. Discussed risks including infection, bleeding, damage to tip of penis, and unsatisfactory result, resulting in surgical repair or repeat circumcision. Patient expressed understanding and consents to procedure. Reviewed infants chart, normal genitalia per title one reading teacher, Dr. Lozada
[2017-09-19] MEDS: PRENATAL VITAMINS W/ FOLIC ACID TABLET (FP) PO SCH (09:42)
[2017-09-19 10:22] VITALS: BP 101/62; PULSE 73; TEMP 98.8
[2017-09-19] MEDS: IBUPROFEN 600 MG TABLET (FP) PO PRN (14:59)
== END 2017-09-19 18:45 | disposition home or self-care (01) | DRG 560 ==
LOC: JLDR 10:00 → J3W 22:28
PROVIDERS: ADMIT Obstetrics & Gynecology; ATTEND Obstetrics & Gynecology
PROC: 0HQ9XZZ Repair Perineum Skin, External Approach (ICD-10-PCS; principal; 2017-09-17)
PROC: 0W8NXZZ Division of Female Perineum, External Approach (ICD-10-PCS; 2017-09-17)
PROC: 10E0XZZ Delivery of Products of Conception, External Approach (ICD-10-PCS; 2017-09-17)
DX: O70.0 First degree perineal laceration during delivery (principal); O99.214 Obesity complicating childbirth; E66.01 Morbid (severe) obesity due to excess calories; Z68.41 Body mass index [BMI] 40.0-44.9, adult; Z3A.40 40 weeks gestation of pregnancy; Z22.330 Carrier of Group B streptococcus; Z37.0 Single live birth
CPT/HCPCS: 36415; 36600; 59409; 80048; 82803; 85025; 85610; 85730; 86593; 86850; 86900; 86901; 90686; 90715; G0008

== ENCOUNTER 2017-10-05 00:14 | Emergency (ER) | payer OTHER ==
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
[2017-10-05] MEDS ORDERED: IBUPROFEN 600 MG TABLET (FP) PO ONE ×2 (03:27→03:40)
[2017-10-05 03:30] VITALS: BP 105/59; PULSE 82; TEMP 98.1; BMI 40.3
[2017-10-05] MEDS ORDERED: METHOCARBAMOL 500 MG TABLET PO ONE (03:30)
[2017-10-05] MEDS ORDERED: METHOCARBAMOL 500 MG TABLET ONE (03:40)
== END 2017-10-05 05:55 | disposition home or self-care (01) ==
LOC: JER 00:14
DX: S42.254A Nondisplaced fracture of greater tuberosity of right humerus, initial encounter for closed fracture (principal); V47.6XXA Car passenger injured in collision with fixed or stationary object in traffic accident, initial encounter; Y92.488 Other paved roadways as the place of occurrence of the external cause; Y93.89 Activity, other specified; Y99.8 Other external cause status
CPT/HCPCS: 73060-TC-RT-FY; 73200-TC-RT; 99283-25

== ENCOUNTER 2018-03-15 22:23 | Emergency (ER) | payer OTHER ==
[2018-03-15 22:27] VITALS: BP 129/75; PULSE 109; TEMP 99.5; BMI 40.3
--- NOTE | 2018-03-15 23:14 | PDOC ---
History of Present Illness - General History Source: Patient Exam Limitations: No Limitations - History of Present Illness Initial Comments: 03/15/18 23:26 The patient is a 22 year old female, , with a significant PMH of asthma who presents to the emergency department with shortness of breath for the past two days. Patient states the shortness of breath worsened today prompting her to come to the ER. Patient is also complaining of a productive cough of green sputum for the past week. Patient was admitted last year for an asthma exacerbation. Patient states she ran out of her albuterol medication at home. Patient called her pharmacy but was told she had no more refills for her albuterol and would have to renew her prescription. The patient denies chest pain, headache and dizziness. Denies fever, chills, nausea, vomit, diarrhea and constipation. Denies dysuria, frequency, urgency and hematuria. Allergies: NKA Past surgical history: None reported. Social history: No reported alcohol, drug or cigarette use. PCP: Dr. Messi Lozada <Lcuy Pantoja - Last Filed: 03/15/18 23:47> <Mona Chen - Last Filed: 03/16/18 04:04> - General Chief Complaint: Shortness of Breath Stated Complaint: ASTHMA Time Seen by Provider: 03/15/18 23:13 Past History <Lucy Pantoja - Last Filed: 03/15/18 23:47> - Past Medical History Asthma: Yes Cancer: No Cardiac Disorders: No COPD: No Diabetes: No HTN: No Seizures: No Thyroid Disease: No - Immunization History Immunization Up to Date: Yes - Suicide/Smoking/Psychosocial Hx Smoking History: Never smoked Have you smoked in the past 12 months: No Number of Cigarettes Smoked Daily: 0 Cigars Per Day: 0 Hx Alcohol Use: No Drug/Substance Use Hx: No Substance Use Type: None Hx Substance Use Treatment: No <Mona Chen - Last Filed: 03/16/18 04:04> - Past Medical History Allergies/Adverse Reactions: Allergies Allergy/AdvReac Type Severity Reaction Status Date / Time No Known Allergies Allergy Verified 03/15/18 22:25 Home Medications: Ambulatory Orders Vit 108/Iron/Folic AC [ One Tablet] 1 each PO DAILY 06/04/17 Albuterol Sulfate Inhaler - [Ventolin Hfa Inhaler -] 1 - 2 inh PO Q6H #1 inhaler 03/15/18 Albuterol Sulfate Inhaler - [Ventolin Hfa Inhaler -] 1 - 2 inh PO QID #1 inhaler 03/16/18 Review of Systems - Review of Systems Able to Perform ROS?: Yes Comments:: 03/15/18 23:41 ADULT ROS GENERAL/CONSTITUTIONAL: No fever or chills. No weakness. HEAD, EYES, EARS, NOSE AND THROAT: No change in vision. No ear pain or discharge. No sore throat. CARDIOVASCULAR: No chest pain. (+) shortness of breath. RESPIRATORY: No wheezing, or hemoptysis. (+) Productive cough. GASTROINTESTINAL: No nausea, vomiting, diarrhea or constipation. GENITOURINARY: No dysuria, frequency, or change in urination. MUSCULOSKELETAL: No joint or muscle swelling or pain. No neck or back pain. SKIN: No rash NEUROLOGIC: No headache, vertigo, loss of consciousness, or change in strength/ sensation. ENDOCRINE: No increased thirst. No abnormal weight change. HEMATOLOGIC/LYMPHATIC: No anemia, easy bleeding, or history of blood clots. ALLERGIC/IMMUNOLOGIC: No hives or skin allergy. <Lucy Pantoja - Last Filed: 03/15/18 23:47> *Physical Exam - Vital Signs Last Vital Signs Temp Pulse Resp BP Pulse Ox 99.5 F 109 H 20 129/75 99 03/15/18 22:25 03/15/18 22:25 03/15/18 22:25 03/15/18 22:25 03/15/18 22:25 - Physical Exam Comments: 03/15/18 23:42 GENERAL: Awake, alert, and fully oriented, in no acute distress HEAD: No signs of trauma EYES: PERRLA, EOMI, sclera anicteric, conjunctiva clear ENT: Auricles normal inspection, hearing grossly normal, nares patent, oropharynx clear without exudates. Moist mucosa NECK: Normal ROM, supple, no lymphadenopathy, JVD, or masses LUNGS: (+) Wheezing bilaterally throughout. Moving good air. Speaking in full sentences. No crackles HEART: Regular rate and rhythm, normal S1 and S2, no murmurs, rubs or gallops ABDOMEN: Soft, nontender, normoactive bowel sounds. No guarding, no rebound. No masses EXTREMITIES: Normal range of motion, no edema. No clubbing or cyanosis. No cords, erythema, or tenderness NEUROLOGICAL: Cranial nerves II through XII grossly intact. Normal speech, normal gait SKIN: Warm, Dry, normal turgor, no rashes or lesions noted. <Lucy Pantoja - Last Filed: 03/15/18 23:47> - Vital Signs Last Vital Signs Temp Pulse Resp BP Pulse Ox 99.5 F 109 H 20 129/75 99 03/15/18 22:25 03/15/18 22:25 03/15/18 22:25 03/15/18 22:25 03/15/18 22:25 <Mona Chen - Last Filed: 03/16/18 04:04> ED Treatment Course - LABORATORY CBC & Chemistry Diagram: 03/16/18 00:38 03/16/18 00:38 <Mona Chen - Last Filed: 03/16/18 04:04> Medical Decision Making - Medical Decision Making 03/16/18 00:10 Pt is tachycardic; I am worried because of her large body habitus and the fact that she has an implanted OCP that she is at risk of blood clots. We will check labs and EKG. 03/16/18 04:01 Labs, EKG, ddimer normal. Lungs sounding vastly better. Pt's vitals imrpoving; she will be discahrged home with an albuterol neb. <Mona Chen - Last Filed: 03/16/18 04:04> *DC/Admit/Observation/Transfer - Attestations Scribe Attestion: 03/15/18 23:42 Documentation prepared by Lucy Pantoja, acting as medical staff director for Mona Chen MD. <Lucy Pantoja - Last Filed: 03/15/18 23:47> - Discharge Dispostion Decision to Admit order: No <Mona Chen - Last Filed: 03/16/18 04:04> Diagnosis at time of Disposition: Asthma exacerbation - Discharge Dispostion Disposition: HOME Condition at time of disposition: Improved - Prescriptions Prescriptions: Albuterol Sulfate Inhaler - [Ventolin Hfa Inhaler -] 1 - 2 inh PO Q6H #1 inhaler Albuterol Sulfate Inhaler - [Ventolin Hfa Inhaler -] 1 - 2 inh PO QID #1 inhaler - Referrals Referrals: Messi Lozada MD [Primary Care Provider] - - Post Discharge Activity Forms/Work/School Notes: Back to Work
[2018-03-15] MEDS ORDERED: DEXAMETHASONE LIQUID 0.5 MG/5 ML 240 ML BULK BOTTLE PO ONE (23:16)
[2018-03-15] MEDS ORDERED: ALBUTEROL SO4 2.5/IPRATROPIUM 0.5 INH SOL 3 ML VIAL.NEB. NEB ONE (23:16)
[2018-03-16] MEDS ORDERED: ALBUTEROL SO4 2.5/IPRATROPIUM 0.5 INH SOL 3 ML VIAL.NEB. NEB ONE
[2018-03-16] MEDS ORDERED: DEXAMETHASONE SOD PHOSPHATE 10 MG/1 ML VIAL ONE
[2018-03-16 00:53] LABS: BASO % 0.7 % (0-2.0); EOS % 2.4 % (0-4.5); LYMPH % 28.5 % (8-40); MCH 26.8 pg (25.7-33.7); MCHC 33.4 g/dl (32.0-36.0); MEAN CELL VOLUME 80.3 fl (80-96); MONO % 4.8 % (3.8-10.2); NEUT % 63.6 % (42.8-82.8); PLATELET COUNT 359 K/MM3 (134-434); RBC 4.85 M/mm3 (3.60-5.2); RDW 15.3 % (11.6-15.6); WHITE BLOOD COUNT 12.2 K/mm3 (4.0-10.0)
[2018-03-16 01:23] LABS: ALBUMIN 3.8 g/dl (3.4-5.0); ALK PHOS 127 U/L (45-117); ANION GAP 8 MMOL/L (8-16); BILIRUBIN,TOTAL 0.2 mg/dL (0.2-1); BLOOD UREA NITROGEN 9 mg/dL (7-18); CALCIUM 9.1 mg/dL (8.5-10.1); CHLORIDE 106 mmol/L (98-107); CO2 26 mmol/L (21-32); CREATININE 0.9 mg/dL (0.55-1.3); GLUCOSE,RANDOM 113 mg/dL (74-106); POTASSIUM 3.6 mmol/L (3.5-5.1); SGOT/AST 21 U/L (15-37); SGPT/ALT 23 U/L (13-61); SODIUM 140 mmol/L (136-145); TOT PROT 7.8 g/dl (6.4-8.2)
--- NOTE | 2018-03-16 11:07 | EKG ---
Test Reason : Blood Pressure : / mmHG Vent. Rate : 097 BPM Atrial Rate : 097 BPM P-R Int : 128 ms QRS Dur : 068 ms QT Int : 342 ms P-R-T Axes : 055 017 013 degrees QTc Int : 434 ms NORMAL SINUS RHYTHM NORMAL ECG NO PREVIOUS ECGS AVAILABLE Confirmed by JESUS FARLEY MD ([id number]) on 03/16/2018 11:07:29 AM Referred By: Confirmed By:JESUS FARLEY MD
== END 2018-03-16 02:15 | disposition home or self-care (01) ==
LOC: JER 22:23
PROC: 3E0F7GC Introduction of Other Therapeutic Substance into Respiratory Tract, Via Natural or Artificial Opening (ICD-10-PCS; principal; 2018-03-15)
DX: J45.901 Unspecified asthma with (acute) exacerbation (principal)
CPT/HCPCS: 36415; 80053; 84703; 85025; 85379; 93005; 93010; 94640; 99282-25

== ENCOUNTER 2018-05-15 19:47 | Emergency (ER) | payer OTHER ==
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
[2018-05-15] MEDS ORDERED: IBUPROFEN 400 MG TABLET (FP) PO ONE ×2 (20:24→20:29)
[2018-05-15 20:33] VITALS: BP 113/80; PULSE 104; TEMP 98.5; BMI 42.5
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
== END 2018-05-15 22:00 | disposition home or self-care (01) ==
LOC: JERFT 19:47
PROC: 2W3RX1Z Immobilization of Left Lower Leg using Splint (ICD-10-PCS; principal; 2018-05-15)
DX: S82.892A Other fracture of left lower leg, initial encounter for closed fracture (principal); V09.29XA Pedestrian injured in traffic accident involving other motor vehicles, initial encounter; Y92.414 Local residential or business street as the place of occurrence of the external cause; Y93.89 Activity, other specified; Y99.8 Other external cause status
CPT/HCPCS: 73610-TC-LT-FY; 73630-TC-LT; 99281-25

== ENCOUNTER 2018-10-14 08:16 | Emergency (ER) | payer OTHER ==
[2018-10-14 08:23] VITALS: BP 115/58; PULSE 92; TEMP 97.9; BMI 41.9
[2018-10-14] MEDS ORDERED: predniSONE 20 MG TABLET (UD) PO ONE (08:51)
[2018-10-14] MEDS ORDERED: ALBUTEROL SO4 2.5/IPRATROPIUM 0.5 INH SOL 3 ML VIAL.NEB. NEB ONE ×2 (08:54→09:58)
[2018-10-14] MEDS ORDERED: predniSONE 20 MG TABLET (UD) ONE (08:54)
[2018-10-14] MEDS: ALBUTEROL SO4 2.5/IPRATROPIUM 0.5 INH SOL 3 ML VIAL.NEB. NEB SCH ×2 (08:55→09:44)
--- NOTE | 2018-10-14 09:09 | PDOC ---
History of Present Illness - General Chief Complaint: Wheezing Stated Complaint: ASTHMA Time Seen by Provider: 10/14/18 08:49 History Source: Patient - History of Present Illness Timing/Duration: reports: just prior to arrival Past History - Past Medical History Allergies/Adverse Reactions: Allergies Allergy/AdvReac Type Severity Reaction Status Date / Time No Known Allergies Allergy Verified 10/14/18 08:21 Home Medications: Ambulatory Orders Albuterol Sulfate Inhaler - [Ventolin Hfa Inhaler -] 1 - 2 inh PO Q6H #1 inhaler 03/15/18 Albuterol Sulfate Inhaler - [Ventolin HFA Inhaler -] 1 - 2 inh PO QID #1 inhaler 10/14/18 Prednisone [Deltasone] 40 mg PO DAILY #8 tablet 10/14/18 Asthma: Yes Cancer: No Cardiac Disorders: No COPD: No Diabetes: No HTN: No Seizures: No Thyroid Disease: No Other medical history: obesity, "fat around gallbladder" - Immunization History Immunization Up to Date: Yes - Suicide/Smoking/Psychosocial Hx Smoking History: Never smoked Have you smoked in the past 12 months: No Number of Cigarettes Smoked Daily: 0 Cigars Per Day: 0 Information on smoking cessation initiated: No Hx Alcohol Use: No Drug/Substance Use Hx: No Substance Use Type: None Hx Substance Use Treatment: No Review of Systems - Review of Systems Constitutional: No: Chills, Fever HEENTM: Yes: Nose Congestion Respiratory: Yes: Cough, Shortness of Breath, Wheezing Cardiac (ROS): Yes: Chest Tightness *Physical Exam - Vital Signs Last Vital Signs Temp Pulse Resp BP Pulse Ox 97.9 F 92 H 20 115/58 L 94 L 10/14/18 08:18 10/14/18 08:18 10/14/18 08:18 10/14/18 08:18 10/14/18 08:18 - Physical Exam General Appearance: Yes: Appropriately Dressed. No: Apparent Distress HEENT: positive: Normal ENT Inspection, Normal Voice. negative: Scleral Icterus (R), Scleral Icterus (L) Neck: positive: Supple Respiratory/Chest: positive: Wheezing Cardiovascular: positive: Regular Rate, S1, S2 Integumentary: positive: Dry, Warm Neurologic: positive: Fully Oriented, Alert, Normal Mood/Affect Medical Decision Making - Medical Decision Making 10/14/18 09:05 22-year-old female, history of asthma with no recent admissions and no history of intubations, ran out of pump, here with shortness of breath, wheezing and chest tightness this a.m. Reports that she's had a dry cough with congestion for the past several days. No hemoptysis, fever or chills. No history of pneumonia. Nonsmoker. See exam Asthma flare in setting of URI Mildly hypoxic to 94% but speaking in full sentences w/ diffuse wheezing on exam -nebs -pred -reassess 10/14/18 09:06 10/14/18 10:16 Patient reports feeling significantly better at this time with repeat O2 of 96% on room air, which was maintained throughout ambulation in ED. Lungs clear on reassessment. Stable for discharge w/ pred burst. Also given refill of her pump. Reasons to return to ER discussed with patient *DC/Admit/Observation/Transfer Diagnosis at time of Disposition: Asthma flare Qualifiers: Asthma severity: unspecified severity Asthma persistence: unspecified Qualified Code(s): J45.901 - Unspecified asthma with (acute) exacerbation - Discharge Dispostion Disposition: HOME Condition at time of disposition: Improved - Prescriptions Prescriptions: Albuterol Sulfate Inhaler - [Ventolin HFA Inhaler -] 1 - 2 inh PO QID #1 inhaler Prednisone [Deltasone] 40 mg PO DAILY #8 tablet - Referrals Referrals: Messi Lozada MD [Primary Care Provider] - - Patient Instructions Printed Discharge Instructions: Asthma -- Adult Additional Instructions: Take medication and use pump as directed If symptoms persist/worsen, return to the ED - Post Discharge Activity
== END 2018-10-14 10:27 | disposition home or self-care (01) ==
LOC: JERFT 08:16
PROC: 3E0F7GC Introduction of Other Therapeutic Substance into Respiratory Tract, Via Natural or Artificial Opening (ICD-10-PCS; principal; 2018-10-14)
PROC: 3E0F7GC Introduction of Other Therapeutic Substance into Respiratory Tract, Via Natural or Artificial Opening (ICD-10-PCS; 2018-10-14)
DX: J45.901 Unspecified asthma with (acute) exacerbation (principal)
CPT/HCPCS: 94640; 99281-25

== ENCOUNTER 2019-04-03 16:30 | Emergency (ER) | payer OTHER ==
[2019-04-03] MEDS ORDERED: predniSONE 20 MG TABLET (UD) PO ONE (16:36)
--- NOTE | 2019-04-03 16:36 | PDOC ---
Rapid Medical Evaluation Medical Evaluation: Allergies Allergy/AdvReac Type Severity Reaction Status Date / Time No Known Allergies Allergy Verified 10/14/18 08:21 I have performed a brief in-person evaluation of this patient. The patient presents with a chief complaint of: hx of asthma (never intubated) presents for sob, wheezing exacerbated by URI sxs; does not have any asthma meds as states has not had asthma attack in a while; sxs feel like her asthma Pertinent physical exam findings: In no respiratory distress, mild wheezing noted I have ordered the following: Duonebs, steroids The patient will proceed to the ED for further evaluation. 04/03/19 16:34
[2019-04-03 16:38] VITALS: BP 134/88; PULSE 111; TEMP 98.2; BMI 40.3
[2019-04-03] MEDS: ALBUTEROL SO4 2.5/IPRATROPIUM 0.5 INH SOL 3 ML VIAL.NEB. NEB SCH ×2 (16:46→17:27)
--- NOTE | 2019-04-03 17:03 | PDOC ---
History of Present Illness - General Chief Complaint: Wheezing Stated Complaint: ASTHMA Time Seen by Provider: 04/03/19 16:34 - History of Present Illness Initial Comments: 04/03/19 16:53 CHIEF COMPLAINT: wheezing, asthma HISTORY OF PRESENT ILLNESS: 23 yo F with hx of asthma (no hospitalizations) presents [facility] with [facility]ezing. Patient reports she has been coughing and sneezing for the past few days and feels like this is an asthma attack. She does not have an inhaler as she has not had an asthma exacerbation for a long time, "but this always happens when I get a cold." No recent travel or sick contacts. PAST MEDICAL HISTORY: Denies past medical history FAMILY HISTORY: Denies SOCIAL HISTORY: Denies tobacco, alcohol, illicit drug use. SURGICAL HISTORY: Denies ALLERGIES: No known drug allergies REVIEW OF SYSTEMS General/Constitutional: Denies fever or chills. Denies weakness, weight change. HEENT: Denies change in vision. Denies ear pain or discharge. Denies sore throat. Cardiovascular: Denies chest pain or shortness of breath. Respiratory: Cough, wheezing. Gastrointestinal: Denies nausea, vomiting, diarrhea or constipation. Denies rectal bleeding. Genitourinary: Denies dysuria, frequency, or change in urination. Musculoskeletal: Denies joint or muscle swelling or pain. Denies neck or back pain. Skin and breasts: Denies rash or easy bruising. Neurologic: Denies headache, vertigo, loss of consciousness, or loss of sensation. Psychiatric: Denies depression or anxiety. PHYSICAL EXAM General Appearance: Well-appearing, appropriately dressed. No apparent distress , no intoxication. HEENT: EOMI, PERRLA, normal ENT inspection, normal voice, TMs normal, pharynx normal. No conjunctival pallor. No photophobia, scleral icterus. Neck: Supple. Trachea midline. No tenderness, rigidity, carotid bruit, stridor , lymphadenopathy, or thyromegaly. Respiratory/Chest: Inspiratory and expiratory wheezing throughout. No shortness of breath, chest tenderness, respiratory distress, accessory muscle use. No crackles, rales, rhonchi, stridor, dullness Cardiovascular: RRR. S1, S2. No JVD, murmur, bradycardia, tachycardia. Vascular Pulses: Dorsalis-Pedis (R): 2+, Dorsalis-Pedis (L): 2+ Gastrointestinal/Abdominal: Normal bowel sounds. Abdomen soft, non-distended. No tenderness or rebound tenderness. No organomegaly, pulsatile mass, guarding , hernia, hepatomegaly, splenomegaly. Lymphatic: No adenopathy, tenderness. Musculoskeletal/Extremities: Normal inspection. FROM of all extremities, normal capillary refill. Pelvis Stable. No CVA tenderness. No tenderness to extremities, pedal edema, swelling, erythema or deformity. Integumentary: Appropriate color, dry, warm. No cyanosis, erythema, jaundice or rash Neurologic: active directory administrator II-XII intact. Fully oriented, alert. Appropriate mood/affect. Motor strength 5/5. No appreciable EOM palsy, facial droop or sensory deficit. Past History - Past Medical History Allergies/Adverse Reactions: Allergies Allergy/AdvReac Type Severity Reaction Status Date / Time No Known Allergies Allergy Verified 04/03/19 16:38 Home Medications: Ambulatory Orders Albuterol Sulfate Inhaler - [Ventolin Hfa Inhaler -] 1 - 2 inh PO Q6H #1 inhaler 03/15/18 Albuterol Sulfate Inhaler - [Ventolin HFA Inhaler -] 1 - 2 inh PO QID #1 inhaler 10/14/18 Prednisone [Deltasone] 40 mg PO DAILY #8 tablet 10/14/18 Albuterol Sulfate Inhaler - [Ventolin HFA Inhaler -] 1 - 2 inh PO Q4H #1 inhaler 04/03/19 predniSONE [Deltasone -] 40 mg PO DAILY #14 tablet 04/03/19 Asthma: Yes Cancer: No Cardiac Disorders: No COPD: No Diabetes: No HTN: No Seizures: No Thyroid Disease: No - Immunization History Immunization Up to Date: Yes - Psycho Social/Smoking Cessation Hx Smoking History: Current every day smoker Have you smoked in the past 12 months: No Number of Cigarettes Smoked Daily: 2 Cigars Per Day: 0 Information on smoking cessation initiated: No Hx Alcohol Use: No Drug/Substance Use Hx: No Substance Use Type: None Hx Substance Use Treatment: No *Physical Exam - Vital Signs Last Vital Signs Temp Pulse Resp BP Pulse Ox 98.2 F 111 H 18 134/88 97 04/03/19 16:33 04/03/19 16:33 04/03/19 16:33 04/03/19 16:33 04/03/19 16:33 Medical Decision Making - Medical Decision Making 04/03/19 17:03 23 yo F with hx of asthma (no hospitalizations) presents [facility]ezing. -duoneb -prednisone 04/03/19 17:37 Patient with significant improvement with wheezing after duoneb but still with mild inspiratory wheezing b/l. Patient without respiratory distress, speaking in full sentences w/o speech dyspnea. -Will dc with prednisone. Advised patient to take medication as prescribed and follow up with PCP within the next week. Advised patient of signs and symptoms for return to ED. Patient verbalized understanding and agrees to plan. Discharge - Discharge Information Problems reviewed: Yes Clinical Impression/Diagnosis: Asthma exacerbation Qualifiers: Asthma severity: moderate Asthma persistence: persistent Qualified Code(s): J45.41 - Moderate persistent asthma with (acute) exacerbation Condition: Stable Disposition: HOME - Admission No - Additional Discharge Information Prescriptions: Albuterol Sulfate Inhaler - [Ventolin HFA Inhaler -] 1 - 2 inh PO Q4H #1 inhaler predniSONE [Deltasone -] 40 mg PO DAILY #14 tablet - Follow up/Referral Referrals: Monroe Priest MD [Staff Physician] - - Patient Discharge Instructions Patient Printed Discharge Instructions: DI for Viral Upper Respiratory Infection -- Adult, DI for Asthma -- Adult - Post Discharge Activity
[2019-04-03] MEDS ORDERED: predniSONE 20 MG TABLET (UD) ONE (17:18)
== END 2019-04-03 17:59 | disposition home or self-care (01) ==
LOC: JERFT 16:30
PROC: 3E0F7GC Introduction of Other Therapeutic Substance into Respiratory Tract, Via Natural or Artificial Opening (ICD-10-PCS; principal; 2019-04-03)
DX: J45.41 Moderate persistent asthma with (acute) exacerbation (principal)
CPT/HCPCS: 94640; 99281-25

== ENCOUNTER 2019-07-19 08:54 | Emergency (ER) | payer OTHER ==
[2019-07-19 09:04] VITALS: BP 113/52; PULSE 77; TEMP 98.8; BMI 41.9
--- NOTE | 2019-07-19 09:48 | PDOC ---
History of Present Illness - General Chief Complaint: Injury Stated Complaint: RT HAND INJURY Time Seen by Provider: 07/19/19 08:59 History Source: Patient Exam Limitations: Clinical Condition - History of Present Illness Initial Comments: 07/19/19 09:49 Patient with no significant past medical history present with complaint of right hand pain status post slip and fall on outstretched hand while going to staircase in her house this morning. Patient reported she missed a step and slipped on a staircase bracing herself with her right hand. Report moderate pain to right wrist with increased pain to back of right hand with swelling. Denies previous injury or trauma to hand. Patient did not take anything for pain Occurred: reports: just prior to arrival Past History - Past Medical History Allergies/Adverse Reactions: Allergies Allergy/AdvReac Type Severity Reaction Status Date / Time No Known Allergies Allergy Verified 07/19/19 08:58 Home Medications: Ambulatory Orders Albuterol Sulfate Inhaler - [Ventolin Hfa Inhaler -] 1 - 2 inh PO Q6H #1 inhaler 03/15/18 Ibuprofen 800 mg PO Q8H PRN #20 tablet 07/19/19 Asthma: Yes Cancer: No Cardiac Disorders: No COPD: No Diabetes: No HTN: No Seizures: No Thyroid Disease: No - Immunization History Immunization Up to Date: Yes - Psycho Social/Smoking Cessation Hx Smoking History: Never smoked Have you smoked in the past 12 months: No Number of Cigarettes Smoked Daily: 2 Cigars Per Day: 0 Hx Alcohol Use: No Drug/Substance Use Hx: No Substance Use Type: None Hx Substance Use Treatment: No Review of Systems - Review of Systems Able to Perform ROS?: Yes Is the patient limited Sinhala proficient: No Constitutional: No: Malaise, Weakness HEENTM: No: Symptoms Reported Respiratory: No: Symptoms reported Cardiac (ROS): No: Symptoms Reported Musculoskeletal: Yes: Symptoms Reported, See HPI, Joint Pain (right wrist pain) , Joint Swelling (right wrist and hand), Muscle Pain (pain to back of right hand ) Integumentary: Yes: Symptoms Reported, See HPI, Other (swelling to back of right hand) Neurological: No: Symptoms reported, Numbness, Paresthesia, Tingling, Weakness All Other Systems: Reviewed and Negative *Physical Exam - Vital Signs Last Vital Signs Temp Pulse Resp BP Pulse Ox 98.8 F 77 18 113/52 L 99 07/19/19 08:55 07/19/19 08:55 07/19/19 08:55 07/19/19 08:55 07/19/19 08:55 - Physical Exam 07/19/19 09:54 GENERAL: Well developed, well nourished. Awake and alert in mild acute distress. PULMONARY: No evidence of respiratory distress. MUSCULOSKELETAL : mild tenderness to dorsal aspect of right wrist with increased pain to dorsal aspect of right hand over second and third metacarpal bones. No tenderness to fingers. Mild localized swelling over the dorsal aspect of right hand. No visible deformity SKIN: Warm and dry. Normal capillary refill. Mild localized swelling over dorsal aspect of right hand NEUROLOGICAL: Alert, awake, appropriate. No motor deficits in the lower extremities. Gait is normal without ataxia. PSYCHIATRIC: Cooperative. Good eye contact. Appropriate mood and affect. General Appearance: Yes: Nourished, Appropriately Dressed, Mild Distress Procedures - Splinting Splint Location: Right: Hand Pre-Proc Neuro Vasc Exam: normal Hand-Made Type: orthoglass Splint Type: Yes: Volar, Short Arm Post-Proc Neuro Vasc Exam: normal Jean Bandage: yes, 3" Sling: No Complications: No Post splint xray: No Good repositioning: Yes ED Treatment Course - RADIOLOGY Radiology Studies Ordered: Category Date Time Status WRIST W/HAND-RIGHT* [RAD] Stat Radiology 07/19/19 09:00 Completed Medical Decision Making - Medical Decision Making 07/19/19 09:50 Patient with no significant past medical history present with complaint of right hand pain status post slip and fall on outstretched hand while going to staircase in her house this morning. Patient reported she missed a step and slipped on a staircase bracing herself with her right hand. Report moderate pain to right wrist with increased pain to back of right hand with swelling. Denies previous injury or trauma to hand. Patient did not take anything for pain Exam significant for mild tenderness to right wrist with increased tenderness to dorsal aspect of right hand over second and third metacarpals with localized swelling to dorsal aspect of right hand. X-ray of right hand shows oblique fracture to shaft soft second metacarpal bone with mild dorsal angulation. No displacement on x-ray. Right hand placement short arm splint in volar splint. Patient stable for discharge with improved as needed for pain with orthopedics follow-up for definitive management of hand fracture Discharge - Discharge Information Problems reviewed: Yes Clinical Impression/Diagnosis: Fracture of metacarpal of right hand, closed Qualifiers: Encounter type: initial encounter Metacarpal bone: second Metacarpal location: shaft Fracture alignment: nondisplaced Qualified Code(s): S62.350A - Nondisplaced fracture of shaft of second metacarpal bone, right hand, initial encounter for closed fracture Condition: Stable Disposition: HOME - Admission No - Additional Discharge Information Prescriptions: Ibuprofen 800 mg PO Q8H PRN #20 tablet PRN Reason: pain - Follow up/Referral Referrals: Dawson Claros MD [Staff Physician] - Call tomorrow El Daugherty MD [Staff Physician] - Call tomorrow - Patient Discharge Instructions Patient Printed Discharge Instructions: DI for a Hand Fracture Additional Instructions: The x-ray of your right hand shows fracture of your second index finger of your hand. Keep splint on until orthopedics follow-up. Take Motrin as needed for pain. Call orthopedist office tomorrow to make follow-up appointment - Post Discharge Activity
== END 2019-07-19 09:53 | disposition home or self-care (01) ==
LOC: JERFT 08:54
PROC: 2W3CX1Z Immobilization of Right Lower Arm using Splint (ICD-10-PCS; principal; 2019-07-19)
DX: S62.350A Nondisplaced fracture of shaft of second metacarpal bone, right hand, initial encounter for closed fracture (principal); W10.8XXA Fall (on) (from) other stairs and steps, initial encounter; Y93.01 Activity, walking, marching and hiking; Y92.018 Other place in single-family (private) house as the place of occurrence of the external cause; Y99.8 Other external cause status
CPT/HCPCS: 29126; 73110-TC-RT-FY; 73130-TC-RT-FY; 99283-25

== ENCOUNTER 2020-12-23 11:59 | Emergency (ER) | payer OTHER ==
[2020-12-23 12:29] VITALS: BP 102/69; PULSE 76; TEMP 98.2; BMI 46.7
[2020-12-23] MEDS ORDERED: ONDANSETRON 4 MG/2 ML VIAL IVPUSH ONE (13:30)
[2020-12-23] MEDS ORDERED: SODIUM CHLORIDE 0.9% 500 ML INFUS.BAG IV ONE (13:30)
[2020-12-23] MEDS ORDERED: morphine CARPU-JECT 4 MG/1 ML DISP.SYRIN IVPUSH ONE (13:30)
[2020-12-23] MEDS ORDERED: morphine SULFATE 4 MG/ML VIAL ONE (13:40)
[2020-12-23] MEDS ORDERED: ONDANSETRON 4 MG/2 ML VIAL ONE (13:41)
[2020-12-23 14:13] LABS: BASO % 0.4 % (0-2.0); EOS % 1.2 % (0-4.5); HEMATOCRIT 39.2 % (32.4-45.2); HEMOGLOBIN 13.5 GM/dL (10.7-15.3); LYMPH % 15.3 % (8-40); MCH 29.4 pg (25.7-33.7); MCHC 34.3 g/dl (32.0-36.0); MEAN CELL VOLUME 85.7 fl (80-96); MEAN PLT VOLUME 7.9 fl (7.5-11.1); MONO % 5.4 % (3.8-10.2); NEUT % 77.7 % (42.8-82.8); PLATELET COUNT 320 10^3/uL (134-434); RBC 4.58 M/mm3 (3.60-5.2); WHITE BLOOD COUNT 10.3 K/mm3 (4.0-10.0)
[2020-12-23 14:18] LABS: INR 1.13 (0.83-1.09); PROTHROMBIN TIME (PATIENT) 13.9 SEC (9.7-13.0)
[2020-12-23 14:21] LABS: EPI CELLS 10 /uL (0-25.1); HYALINE CASTS 2 /uL (0-3.1); URINE APPEARANCE CLEAR; URINE BACTERIA 286 /uL (0-1359); URINE BILIRUBIN NEGATIVE (NEGATIVE); URINE COLOR DK YELLOW; URINE GLUCOSE (UA) NEGATIVE (NEGATIVE); URINE KETONE NEGATIVE (NEGATIVE); URINE LEUK ESTERASE NEGATIVE (NEGATIVE); URINE NITRITE NEGATIVE (NEGATIVE); URINE PROTEIN NEGATIVE (NEGATIVE); URINE RBC 50 /uL (0-23.9); URINE WBC 7 /uL (0-25.8)
[2020-12-23 14:30] LABS: BLOOD UREA NITROGEN 9.3 mg/dL (7-18); CALCIUM 8.7 mg/dL (8.5-10.1)
[2020-12-23 14:31] LABS: ALBUMIN 3.7 g/dl (3.4-5.0)
[2020-12-23 14:31] LABS: HCG,QUALITATIVE URINE Negative
[2020-12-23 14:33] LABS: CREATININE 0.8 mg/dL (0.55-1.3)
[2020-12-23 14:35] LABS: BILIRUBIN,TOTAL 0.4 mg/dL (0.2-1); TOT PROT 7.1 g/dl (6.4-8.2)
== END 2020-12-23 16:13 | disposition home or self-care (01) ==
LOC: JER 11:59
PROC: 3E033NZ Introduction of Analgesics, Hypnotics, Sedatives into Peripheral Vein, Percutaneous Approach (ICD-10-PCS; principal; 2020-12-23)
PROC: 3E033GC Introduction of Other Therapeutic Substance into Peripheral Vein, Percutaneous Approach (ICD-10-PCS; 2020-12-23)
DX: R10.13 Epigastric pain (principal)
CPT/HCPCS: 36415; 71046-TC-FY; 76705-TC; 80053; 81003; 83690; 84703; 85025; 85610; 85730; 86850; 86900; 86901; 87086; 99285-25

== ENCOUNTER 2020-12-24 07:31 | Emergency (ER) | payer OTHER ==
[2020-12-24] MEDS ORDERED: FAMOTIDINE 20 MG/50 ML IVPB 20 MG/50 ML MG IVPB ONE ×2 (07:51→08:19)
[2020-12-24] MEDS ORDERED: ONDANSETRON 4 MG/2 ML VIAL IVPUSH ONE (07:51)
[2020-12-24] MEDS ORDERED: MAG HYDROX/AL HYDROX/SIMETH 30 ML UNIT-DOSE CUP PO ONE (07:51)
[2020-12-24] MEDS ORDERED: morphine CARPU-JECT 4 MG/1 ML DISP.SYRIN IVPUSH ONE (07:51)
[2020-12-24] MEDS ORDERED: SUCRALFATE 1 GM TABLET (FP) PO ONE (07:51)
[2020-12-24 08:09] VITALS: BMI 51.3
[2020-12-24 08:14] LABS: BASO % 0.7 % (0-2.0); EOS % 1.5 % (0-4.5); HEMATOCRIT 38.3 % (32.4-45.2); HEMOGLOBIN 13.2 GM/dL (10.7-15.3); LYMPH % 26.9 % (8-40); MCH 29.7 pg (25.7-33.7); MCHC 34.5 g/dl (32.0-36.0); MEAN CELL VOLUME 86.3 fl (80-96); MEAN PLT VOLUME 8.1 fl (7.5-11.1); MONO % 6.7 % (3.8-10.2); NEUT % 64.2 % (42.8-82.8); PLATELET COUNT 284 10^3/uL (134-434); RBC 4.44 M/mm3 (3.60-5.2); RDW 13.9 % (11.6-15.6); WHITE BLOOD COUNT 9.7 K/mm3 (4.0-10.0)
[2020-12-24] MEDS ORDERED: morphine SULFATE 4 MG/ML VIAL ONE (08:18)
[2020-12-24] MEDS ORDERED: SUCRALFATE 1 GM TABLET (FP) ONE (08:18)
[2020-12-24] MEDS ORDERED: MAG HYDROX/AL HYDROX/SIMETH 30 ML UNIT-DOSE CUP ONE (08:19)
[2020-12-24] MEDS ORDERED: ONDANSETRON 4 MG/2 ML VIAL ONE (08:19)
[2020-12-24] MEDS ORDERED: SODIUM CHLORIDE 0.9% 500 ML INFUS.BAG IV ONE (08:21)
[2020-12-24 08:26] LABS: BLOOD UREA NITROGEN 10.8 mg/dL (7-18); CALCIUM 8.5 mg/dL (8.5-10.1)
[2020-12-24 08:27] LABS: ALBUMIN 3.6 g/dl (3.4-5.0)
[2020-12-24 08:29] LABS: CREATININE 0.8 mg/dL (0.55-1.3)
[2020-12-24 08:31] LABS: BILIRUBIN,TOTAL 0.5 mg/dL (0.2-1)
[2020-12-24 08:52] VITALS: TEMP 98.1
[2020-12-24 12:02] VITALS: BP 114/75; PULSE 61
== END 2020-12-24 12:50 | disposition home or self-care (01) ==
LOC: JER 07:31
PROC: 3E033NZ Introduction of Analgesics, Hypnotics, Sedatives into Peripheral Vein, Percutaneous Approach (ICD-10-PCS; principal; 2020-12-24)
PROC: 3E033GC Introduction of Other Therapeutic Substance into Peripheral Vein, Percutaneous Approach (ICD-10-PCS; 2020-12-24)
PROC: 3E033GC Introduction of Other Therapeutic Substance into Peripheral Vein, Percutaneous Approach (ICD-10-PCS; 2020-12-24)
DX: R10.9 Unspecified abdominal pain (principal)
CPT/HCPCS: 36415; 71045-TC-FY; 74177-TC; 80053; 83690; 84703; 85025; 96365; 96375; 99285-25; C9803; U0003; U0005

== ENCOUNTER 2020-12-24 15:52 | Emergency (ER) | payer OTHER ==
[2020-12-24 15:57] VITALS: BP 100/59; PULSE 69; TEMP 98.5; BMI 51.3
== END 2020-12-24 17:15 | disposition left against medical advice (07) ==
LOC: JER 15:52
PROC: 3E033NZ Introduction of Analgesics, Hypnotics, Sedatives into Peripheral Vein, Percutaneous Approach (ICD-10-PCS; principal; 2020-12-24)
PROC: 3E033GC Introduction of Other Therapeutic Substance into Peripheral Vein, Percutaneous Approach (ICD-10-PCS; 2020-12-24)
PROC: 3E033GC Introduction of Other Therapeutic Substance into Peripheral Vein, Percutaneous Approach (ICD-10-PCS; 2020-12-24)
DX: R11.0 Nausea (principal); R10.9 Unspecified abdominal pain
CPT/HCPCS: 96365; 96375; 99284-25

== ENCOUNTER 2021-06-05 18:48 | Emergency (ER) | payer OTHER ==
[2021-06-05 18:54] VITALS: BP 108/71; PULSE 78; TEMP 98.1; BMI 49.6
[2021-06-05] MEDS ORDERED: predniSONE 20 MG TABLET (UD) PO ONE (19:52)
[2021-06-05] MEDS ORDERED: ALBUTEROL SO4 HFA INHALER IH ONE ×2 (19:53→20:19)
[2021-06-05] MEDS ORDERED: predniSONE 20 MG TABLET (UD) ONE (20:19)
[2021-06-06 14:07] LABS: SARS-CoV-2 NAA Detected (Not Detected)
== END 2021-06-05 23:43 | disposition home or self-care (01) ==
LOC: JER 18:48
PROC: 3E0F7GC Introduction of Other Therapeutic Substance into Respiratory Tract, Via Natural or Artificial Opening (ICD-10-PCS; principal; 2021-06-05)
DX: U07.1 COVID-19 (principal)
CPT/HCPCS: 71046-TC-FY; 94640; 99284-25; C9803-CS; U0003; U0005

== ENCOUNTER 2022-07-27 21:55 | Emergency (ER) | payer OTHER ==
[2022-07-27 22:04] VITALS: TEMP 98.1; BMI 49.6
[2022-07-27] MEDS ORDERED: SODIUM CHLORIDE 500 ML IV STA (22:10)
[2022-07-27] MEDS ORDERED: FAMOTIDINE 20 MG/50 ML IVPB 20 MG/50 ML MG IVPB ONE ×2 (22:10→22:19)
[2022-07-27] MEDS ORDERED: ONDANSETRON 4 MG/2 ML VIAL IVPUSH ONE (22:10)
[2022-07-27] MEDS ORDERED: ONDANSETRON 4 MG/2 ML VIAL ONE (22:18)
[2022-07-27 22:43] LABS: BASO % 0.1 % (0-2.0); HEMATOCRIT 38.3 % (32.4-45.2); HEMOGLOBIN 12.6 GM/dL (10.7-15.3); LYMPH % 5.7 % (8-40); MCH 27.4 pg (25.7-33.7); MEAN PLT VOLUME 7.7 fl (7.5-11.1); MONO % 1.9 % (3.8-10.2); NEUT % 92.3 % (42.8-82.8); PLATELET COUNT 365 10^3/uL (134-434); RBC 4.61 M/mm3 (3.60-5.2); RDW 13.8 % (11.6-15.6); WHITE BLOOD COUNT 17.2 K/mm3 (4.0-10.0)
[2022-07-27 23:13] LABS: CALCIUM 9.1 mg/dL (8.5-10.1)
[2022-07-27 23:14] LABS: ALBUMIN 2.5 g/dl (3.4-5.0); BLOOD UREA NITROGEN 5.7 mg/dL (7-18)
[2022-07-27 23:17] LABS: CREATININE 0.7 mg/dL (0.55-1.3)
[2022-07-27 23:18] LABS: TOT PROT 6.6 g/dl (6.4-8.2)
[2022-07-27 23:19] LABS: ANISOCYTOSIS 0; BILIRUBIN,TOTAL 0.5 mg/dL (0.2-1); MACROCYTOSIS 0
[2022-07-27 23:47] LABS: EPI CELLS >36 /uL (0-25.1); HYALINE CASTS 10 /uL (0-3.1); URINE APPEARANCE CLOUDY; URINE BACTERIA 5911 /uL (0-1359); URINE BILIRUBIN 1+ (NEGATIVE); URINE COLOR DK YELLOW; URINE GLUCOSE (UA) NEGATIVE (NEGATIVE); URINE KETONE 4+ (NEGATIVE); URINE LEUK ESTERASE 1+ (NEGATIVE); URINE NITRITE NEGATIVE (NEGATIVE); URINE PROTEIN 1+ (NEGATIVE); URINE RBC 19 /uL (0-23.9); URINE WBC 119 /uL (0-25.8)
[2022-07-28] MEDS ORDERED: CEFTRIAXONE 1,000 MG in DEXTROSE 5%-WATER - 50 ML IVPB ONE (00:21)
[2022-07-28] MEDS ORDERED: CEFTRIAXONE 1 GM/50 ML BAG ONE (00:23)
[2022-07-28 00:55] VITALS: BP 103/57; PULSE 68; RESP 18
[2022-07-28] MEDS ORDERED: CEFTRIAXONE 1 GM in DEXTROSE 5%-WATER - 50 ML IVPB SCH (10:00)
== END 2022-07-28 00:56 | disposition home or self-care (01) ==
LOC: JER 21:55
PROC: 3E03329 Introduction of Other Anti-infective into Peripheral Vein, Percutaneous Approach (ICD-10-PCS; principal; 2022-07-27)
PROC: 3E033GC Introduction of Other Therapeutic Substance into Peripheral Vein, Percutaneous Approach (ICD-10-PCS; 2022-07-27)
PROC: 3E033GC Introduction of Other Therapeutic Substance into Peripheral Vein, Percutaneous Approach (ICD-10-PCS; 2022-07-27)
PROC: 3E0337Z Introduction of Electrolytic and Water Balance Substance into Peripheral Vein, Percutaneous Approach (ICD-10-PCS; 2022-07-27)
DX: O23.43 Unspecified infection of urinary tract in pregnancy, third trimester (principal); O26.893 Other specified pregnancy related conditions, third trimester; R10.84 Generalized abdominal pain; Z3A.31 31 weeks gestation of pregnancy
CPT/HCPCS: 36415; 76705-TC; 80053; 81003; 83605; 83690; 85025; 99284-25

== ENCOUNTER 2023-05-19 02:18 | Emergency (ER) | payer OTHER ==
[2023-05-19 02:50] VITALS: BMI 27.4
[2023-05-19] MEDS ORDERED: ACETAMINOPHEN 500 MG TABLET (FP) PO ONE (03:21)
[2023-05-19] MEDS ORDERED: ACETAMINOPHEN 325 MG TABLET (FP) ONE (03:22)
[2023-05-19 04:58] VITALS: RESP 16
[2023-05-19 06:28] VITALS: BP 110/52; PULSE 62; TEMP 97.9
== END 2023-05-19 06:29 | disposition home or self-care (01) ==
LOC: JER 02:18
DX: R51.9 Headache, unspecified (principal); S00.83XA Contusion of other part of head, initial encounter; R22.0 Localized swelling, mass and lump, head; Y04.0XXA Assault by unarmed brawl or fight, initial encounter
CPT/HCPCS: 70450-TC; 70486-TC; 84703; 99284-25

== ENCOUNTER 2023-12-10 07:46 | Emergency (ER) | payer OTHER ==
[2023-12-10 07:55] VITALS: BMI 40.6
[2023-12-10] MEDS ORDERED: DEXAMETHASONE SOD PHOSPHATE 10 MG/1 ML VIAL ONE (08:23)
[2023-12-10] MEDS ORDERED: ACETAMINOPHEN INJECTION 100 ML IVPB ONE (08:24)
[2023-12-10] MEDS ORDERED: ALBUTEROL SO4 2.5/IPRATROPIUM 0.5 INH SOL 3 ML VIAL.NEB. NEB ONE (08:26)
[2023-12-10] MEDS: ALBUTEROL SO4 2.5/IPRATROPIUM 0.5 INH SOL 3 ML VIAL.NEB. NEB ONE (08:30)
[2023-12-10] MEDS: SODIUM CHLORIDE 500 ML IV STA (08:30)
[2023-12-10] MEDS: ONDANSETRON 4 MG TABLET PO ONE (08:30)
[2023-12-10] MEDS: ACETAMINOPHEN 1000 MG/100 ML BAG IVPB ONE (08:30)
[2023-12-10] MEDS: DEXAMETHASONE SOD PHOSPHATE 10 MG/1 ML VIAL IVPUSH ONE (08:30)
[2023-12-10] MEDS ORDERED: ONDANSETRON 4 MG/2 ML VIAL ONE (08:40)
[2023-12-10] MEDS: ACETAMINOPHEN 325 MG TABLET (FP) PO ONE (09:46)
[2023-12-10] MEDS: methylPREDNISolone NA SUCC 125 MG/2 ML VIAL IVPB ONE (09:46)
[2023-12-10 09:48] LABS: EPI CELLS >36 /uL (0-25.1); HYALINE CASTS 7 /uL (0-3.1); URINE APPEARANCE CLOUDY; URINE BACTERIA 1203 /uL (0-1359); URINE BILIRUBIN NEGATIVE (NEGATIVE); URINE COLOR YELLOW; URINE GLUCOSE (UA) NEGATIVE (NEGATIVE); URINE KETONE TRACE (NEGATIVE); URINE LEUK ESTERASE 2+ (NEGATIVE); URINE NITRITE NEGATIVE (NEGATIVE); URINE PROTEIN 1+ (NEGATIVE); URINE RBC 33 /uL (0-23.9); URINE WBC 445 /uL (0-25.8)
[2023-12-10 09:49] LABS: BASO % 0.4 % (0-2.0); EOS % 0.3 % (0-4.5); HEMATOCRIT 37.2 % (32.4-45.2); HEMOGLOBIN 12.6 GM/dL (10.7-15.3); LYMPH % 5.1 % (8-40); MCHC 33.9 g/dl (32.0-36.0); MEAN CELL VOLUME 88.5 fl (80-96); MEAN PLT VOLUME 8.2 fl (7.5-11.1); MONO % 3.7 % (3.8-10.2); NEUT % 90.5 % (42.8-82.8); PLATELET COUNT 230 10^3/uL (134-434); RBC 4.21 M/mm3 (3.60-5.2); RDW 13.6 % (11.6-15.6); WHITE BLOOD COUNT 9.4 K/mm3 (4.0-10.0)
[2023-12-10 09:50] VITALS: BP 121/60; RESP 21; TEMP 98.9
[2023-12-10 09:56] VITALS: PULSE 110
[2023-12-10 09:57] LABS: POTASSIUM 3.6 mmol/L (3.5-5.1)
[2023-12-10 09:59] LABS: BLOOD UREA NITROGEN 11.4 mg/dL (7-18); CALCIUM 8.8 mg/dL (8.5-10.1)
[2023-12-10 10:00] LABS: ALBUMIN 3.6 g/dl (3.4-5.0)
[2023-12-10 10:03] LABS: CREATININE 0.9 mg/dL (0.55-1.3)
[2023-12-10 10:04] LABS: BILIRUBIN,TOTAL 0.6 mg/dL (0.2-1); TOT PROT 7.2 g/dl (6.4-8.2)
[2023-12-10] MEDS ORDERED: IBUPROFEN 600 MG TABLET (FP) PO ONE (11:36)
[2023-12-10] MEDS: IBUPROFEN 600 MG TABLET (FP) PO ONE (11:41)
== END 2023-12-10 11:43 | disposition home or self-care (01) ==
LOC: JER 07:46
PROC: 3E033NZ Introduction of Analgesics, Hypnotics, Sedatives into Peripheral Vein, Percutaneous Approach (ICD-10-PCS; principal; 2023-12-10)
PROC: 3E033GC Introduction of Other Therapeutic Substance into Peripheral Vein, Percutaneous Approach (ICD-10-PCS; 2023-12-10)
PROC: 3E0337Z Introduction of Electrolytic and Water Balance Substance into Peripheral Vein, Percutaneous Approach (ICD-10-PCS; 2023-12-10)
PROC: 3E0F7GC Introduction of Other Therapeutic Substance into Respiratory Tract, Via Natural or Artificial Opening (ICD-10-PCS; 2023-12-10)
DX: N39.0 Urinary tract infection, site not specified (principal); J10.1 Influenza due to other identified influenza virus with other respiratory manifestations; R50.9 Fever, unspecified; R05.9 Cough, unspecified; R06.02 Shortness of breath; R11.2 Nausea with vomiting, unspecified; R00.0 Tachycardia, unspecified; R09.81 Nasal congestion; R10.30 Lower abdominal pain, unspecified; M79.10 Myalgia, unspecified site; Z20.822 Contact with and (suspected) exposure to COVID-19
CPT/HCPCS: 0241U-QW; 36415; 71045-TC-FY; 80053; 81003; 84703; 85025; 94640; 96361; 96374; 96375; 99284-25; J0131; J1100